=== PATIENT | female | born 1940 | race Caucasian/White ===

== ENCOUNTER 2017-02-26 15:20 | Inpatient (IN) | payer MEDICARE, MEDICAID ==
[~2017-02-26] VITALS: Ht 154.9 cm; Wt 56.2 kg
[2017-02-26] VITALS (13 sets, daily range): BP systolic 98–115; BP diastolic 47–72
[~2017-02-26 15:20] MED LIST: ACET-73 PO; EPOE200011 IJ; FLUO10TA PO; FOLI1TAB16 PO; HALO2TAB7 PO; LAMO1TAB PO; LORA0.5T PO; MAG30ORA PO; MAGN400O4 PO; NITR0.4T SL; SULF1TAB48 PO; [UNRECOGNIZED DRUG - CODE] IM
--- NOTE | 2017-02-26 15:24 | NUR ---
pt bibra from snf to er bed 09. sent by pmd for abnormal labs. low h&h. 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 gowned and placed on monitor. stable vitals. awaiting md crouch.
[2017-02-26] MEDS ORDERED: FAMO20TA8 PO (15:42)
[2017-02-26] MEDS ORDERED: NA P133E RC (15:42)
[2017-02-26] MEDS ORDERED: MIRT15TA PO (15:42)
[2017-02-26] MEDS ORDERED: ATEN25TA PO (15:42)
[2017-02-26] MEDS ORDERED: IPRA0.2S9 IH (15:42)
[2017-02-26] MEDS ORDERED: BISA10SU8 RC (15:42)
[2017-02-26] MEDS ORDERED: ACET-868 PO (15:42)
[2017-02-26] MEDS ORDERED: ALBU2.5V13 IH (15:42)
[2017-02-26] MEDS ORDERED: LAMO25TA5 PO (15:42)
[2017-02-26] MEDS ORDERED: MAGN400O6 PO (15:42)
[2017-02-26] MEDS ORDERED: ONDA-25 PO (15:42)
[2017-02-26] MEDS ORDERED: PANTOPRAZOLE 40 MG VIAL ONE (15:55)
--- NOTE | 2017-02-26 15:56 | NUR ---
dr grant at bedside for eval.
[2017-02-26] MEDS ORDERED: PANTOPRAZOLE 40 MG VIAL IV ONE (16:00)
--- NOTE | 2017-02-26 16:02 | NUR ---
CALLED NURSING SUP. FOR TELE BED
[2017-02-26 16:09] LABS: CALCIUM, SERUM 8.8 mg/dL (8.5-10.1); CARBON DIOXIDE 27 mmol/L (21-32); CHLORIDE 104 mmol/L (98-107); CREATININE 1.2 mg/dL (0.6-1.3); GLUCOSE 114 mg/dL (74-106); POTASSIUM 3.6 mmol/L (3.5-5.1); SODIUM SERUM 137 mmol/L (136-145); UREA NITROGEN, BLOOD 21 mg/dL (7-18)
[2017-02-26 16:12] LABS: BASOPHILS % (AUTO) 0.4 % (0.0-2.0); EOSINOPHILS # (AUTO) 0.1 /CMM (0.0-0.7); EOSINOPHILS % (AUTO) 1.9 % (0.0-6.0); LYMPHOCYTES % (AUTO) 30.4 % (20.0-44.0); MEAN CORPUSCULAR HEMOGLOBIN 32 PG (26.0-33.0); MEAN CORPUSCULAR HGB CONC 35 g/dl (31.0-36.0); MEAN CORPUSCULAR VOLUME 94 fL (82-100); MONOCYTES # (AUTO) 0.2 /CMM (0.1-1.30); MONOCYTES % (AUTO) 5.3 % (2.0-12.0); PLATELET COUNT (AUTO) 293 /CMM (150-450); RDW COEFFICIENT OF VARIATION 18.6 (11.5-15.0); WHITE BLOOD COUNT (AUTO) 3.3 K/uL (4.3-11.0)
[2017-02-26 16:13] LABS: RED BLOOD CELL COUNT(AUTO) 1.92 MIL/uL (4.0-5.2)
[2017-02-26 16:14] LABS: HEMATOCRIT 18 % (33-45); HEMOGLOBIN 6.2 g/dL (11.5-14.8)
--- NOTE | 2017-02-26 16:14 | NUR ---
HEMOGLOBIN 6.2
[2017-02-26 16:15] LABS: INR 1.12 (0.87-1.13); PROTHROMBIN TIME 11.8 SECS (9.5-12.7)
--- NOTE | 2017-02-26 16:40 | NUR ---
report given to francine. pt awaiting transfer to floor.
[2017-02-26 17:05] LABS: EOSINOPHILS % (MANUAL) 2 % (0-4); LYMPHOCYTES % (MANUAL) 31 % (16-48); MONOCYTES % (MANUAL) 2 % (0-11.0); NEUTROPHILS % (MANUAL) 65 (42-76)
--- NOTE | 2017-02-26 17:30 | NUR ---
telephone order clerk room service: admission admitted this 76 yr old female pt from e.r. with dx: anemia. awake, a/ox3; greek speaking with faroese. oriented to room and surroundings. no c/o pain or any discomfort, but request for food. noted with iv to lac, gauge #18. consent for blood already in chart that was done by e.rIlene with order of 1 unit of prbc to transfuse. vss, afebrile. denies n/v, or abdominal pain at this time. placed pt on tele=[id number]. in no apparent distress noted. instructed to call for assistance. will continue to monitor.
[2017-02-26] MEDS ORDERED: NA PHOS,M-B/NA PHOS,DI-BA 1 EA ENEMA RC PRN (18:00)
[2017-02-26] MEDS ORDERED: BISACODYL SUPP (10 MG) 10 MG/SUPP.RECT SUPP.RECT RC PRN (18:00)
[2017-02-26] MEDS ORDERED: IPRATROPIUM NEB FS 0.5 MG/2.5 ML AMPUL.NEB IH PRN (18:00)
[2017-02-26] MEDS ORDERED: ALBUTEROL FS 2.5 MG/0.5 ML VIAL.NEB IH PRN (18:00)
[2017-02-26] MEDS ORDERED: ACETAMINOPHEN 325 MG TABLET PO PRN (18:00)
[2017-02-26] MEDS ORDERED: MAGNESIUM HYDROXIDE 30 ML UDC PO PRN (18:00)
--- NOTE | 2017-02-26 18:00 | NUR ---
radio television technical director: johnny hale) chemical operations specialist for dr. carr notified and made aware re: admission and made aware that only 1 unit of prbc ordered from e.r. with admitting orders: to give additional 1 unit of prbc, cbc in am, continue home medications and diet from snf. orders read back and carried out and acknowledged. Addendum: 02/26/17 at 1809 by KHOA JOHNSON RN also received dnr status ordered.
--- NOTE | 2017-02-26 19:00 | NUR ---
MS RN INITIAL NOTE PT RECEIVED IN BED, A/O X 1, NO S/S OF RESPIRATORY DISTRESS OR SOB. SAFE ENVIRONMENT PROVIDED FREE OF CLUTTERS. IV SITE INTACT WITH NO S/S OF INFILTRATION NOTED.BED IN LOCKED, LOW POSITION. CALL LIGHT WITHIN EASY REACH. WILL CONTINUE TO MONITOR.
--- NOTE | 2017-02-26 20:12 | NUR ---
MS/RN NOTES CALLED SHIREEN ANN, PRINCIPAL PROCESS ENGINEER FOR DR. BLANCHARD AND LEFT MESSAGE WITH CALL BACK NUMBER. CALLED TO CLARIFY HOW MANY UNITS OF PRBC'S PT. NEEDS TO RECEIVE TODAY.
[2017-02-26] MEDS ORDERED: BLOOD IV SET 1 EA INFUS.SET MC ONE ×2 (20:22→23:27)
[2017-02-26] MEDS ORDERED: IV NS 0.9% 250 ML IV ONE ×2 (20:22→23:27)
--- NOTE | 2017-02-26 20:50 | NUR ---
TO START 1 PRBC ORDERED PATIENT EDUCATED ABOUT THE TRANSFUSION.
[2017-02-26] MEDS: MIRTAZAPINE 15 MG TABLET PO SCH (21:10)
--- NOTE | 2017-02-26 22:33 | NUR ---
RECEIVED A MESSAGE FROM MS. ESVIN MARTINEZ NP OF [facility] AT 1930 TO TRANSFUSE ONLY 2 UNITS OF PRBC NOTED AND CARRIED OUT Addendum: 02/27/17 at 0533 by SKYLER SON RN ADDENDUM: NURSE PRACTIONER OF DR. LO BLAS IS EVELYN MARTINEZ
--- NOTE | 2017-02-26 23:08 | NUR ---
POST TRANSFUSION NO A/R NOTED. IN STABLE CONDITION. WILL ADMINISTER 1 MORE PACK RBC ORDERED. WILL CONTINUE TO MONITOR PATIENT
[2017-02-27] VITALS (14 sets, daily range): BP systolic 18–114; BP diastolic 51–95
--- NOTE | 2017-02-27 02:44 | NUR ---
POST TRANSFUSION PATIENT SHOWING NO S/S OF DISTRESS TOLERATED THE PROCEDURE WELL NO A/R NOTED. NO CHANGE IN VITALS, NO SOB, NO HEADACHE NO PULMONARY EDEMA, NO CHILLS, NO HYPOTENSION, NO CHEST PAIN, NO HEMATURIA, NO OOZING BLOOD, NO HIVES AND ITCHING NO TACHYCARDIA, NO FACIAL FACIAL FLUSHING, NO NAUSEA, AND NO SHOCK. NO EVIDENCE OF FLUID OVERLOAD NO SUSPECTED REACTION NOTED.
[2017-02-27 06:37] LABS: BASOPHILS % (AUTO) 0.4 % (0.0-2.0); EOSINOPHILS # (AUTO) 0.1 /CMM (0.0-0.7); HEMATOCRIT 26 % (33-45); HEMOGLOBIN 9.2 g/dL (11.5-14.8); LYMPHOCYTES % (AUTO) 27.5 % (20.0-44.0); MEAN CORPUSCULAR HEMOGLOBIN 31 PG (26.0-33.0); MEAN CORPUSCULAR HGB CONC 35 g/dl (31.0-36.0); MEAN CORPUSCULAR VOLUME 90 fL (82-100); MONOCYTES # (AUTO) 0.2 /CMM (0.1-1.30); MONOCYTES % (AUTO) 4.6 % (2.0-12.0); NEUTROPHILS # (AUTO) 2.5 /CMM (1.8-8.9); NEUTROPHILS % (AUTO) 65.5 % (43.0-81.0); PLATELET COUNT (AUTO) 224 /CMM (150-450); RDW COEFFICIENT OF VARIATION 18.5 (11.5-15.0); RED BLOOD CELL COUNT(AUTO) 2.94 MIL/uL (4.0-5.2); WHITE BLOOD COUNT (AUTO) 3.8 K/uL (4.3-11.0)
--- NOTE | 2017-02-27 06:50 | NUR ---
MS RN CLOSING NOTES PATIENT COMFORTABLY ASLEEP AND EASILY AWAKEN, HEAD OF BED ELEVATED FOR BETTER LUNG EXPANSION A/O X 3, WITH PERIODS OF FORGETFULNESS, PATIENT DENIES PAIN AT THIS TIME. 0/10 RESPIRATIONS EVEN AND UNLABORED. LUNG SOUNDS CLEAR UPON AUSCULTATION, NO S/S OF ACUTE DISTRESS, NO SOB, NO COUGH, NO CONGESTION, SKIN WARM AND DRY TO TOUCH, AFEBRILE, ALL NURSING CARE NEEDS PROVIDED AND RENDERED, NEEDS ATTENDED AND ANTICIPATED, TOLERATING ROOM AIR. VS STABLE. KEPT CLEAN AND DRY AND COMFORTABLE, BLADDER NOT DISTENDED, GOOD SKIN ARE PROVIDED. NO C/O OF CONSTIPATION. ALL DUE MEDS WAS GIVEN TOLERATED. FREQUENT VISUAL CHECK DONE FOR SAFETY EVERY 2 HOURS. SAFE HAZARD FREE ENVIRONMENT PROVIDED. CALL LIGHT WITHIN EASY TO REACH, ON LOW BED AT ALL TIMES TO ENSURE SAFETY, WILL ENDORSE TO THE NEXT SHIFT CONTINUE PLAN OF CARE. WAS ABLE TRANFUSE AND TOLERATED 2 PRBC OF TRANSFUSION WITH NO A/R NOTED. PATIENT REMAINS STABLE AND TOLERATED THE PROCEDURE. NURSE PRACTITIONER OF DR. OL BLAS WANTS TO ONLY TRANFUSE 2 PRBC AND WAS DONE ACCORDINGLY.
--- NOTE | 2017-02-27 07:26 | NUR ---
RN OPEN NOTES RECEIVED REPORT FROM SHOP GIRL NURSE. PATIENT IS IN BED, AWAKE, ALERT AND ORIENTED TO NAME, PLACE AND TIME. NO SIGNS AND SYMPTOMS OF DISTRESS. BED IN LOW POSITION, LOCKED AND 2 SIDE RAILS ARE UP. WILL CONTINUE TO MONITOR AND ASSESS PATIENT CONDITION.
[2017-02-27] MEDS: ATENOLOL 25 MG TABLET PO SCH ×2 (08:05→16:42)
[2017-02-27] MEDS: LamoTRIgine 25 MG TABLET PO SCH (08:05)
[2017-02-27] MEDS ORDERED: FAMOTIDINE (20 MG) 20 MG TABLET PO SCH (09:00)
--- NOTE | 2017-02-27 18:38 | NUR ---
RN CLOSING NOTES Patient is alert and oriented to name, time and place. Patient kept clean and dry. All needs anticipated. Stool sample for occult blood is needed, patient made aware. Patient is in bed. bed in low position, locked and two side-rails are up. No signs and symptoms of distress. Denied pain. Will endorse to night court magistrate nurse to continue of care.
--- NOTE | 2017-02-27 19:00 | NUR ---
MS RN INITIAL NOTE PT RECEIVED IN BED, A/O X 3, NO S/S OF RESPIRATORY DISTRESS OR SOB. SAFE ENVIRONMENT PROVIDED FREE OF CLUTTERS. IV SITE INTACT WITH NO S/S OF INFILTRATION NOTED.BED IN LOCKED, LOW POSITION. CALL LIGHT WITHIN EASY REACH. WILL CONTINUE TO MONITOR.
[2017-02-27] MEDS: MIRTAZAPINE 15 MG TABLET PO SCH (21:12)
--- NOTE | 2017-02-27 21:22 | NUR ---
REMERON 15 MG PO DUE AT 2200 REFUSED TO TAKE BY THE PATIENT RISKS AND BENEFITS EXPLAINED OFFERED 3 TIMES STILL REFUSED. MADE AWARE, RP MADE AWARE
--- NOTE | 2017-02-28 06:27 | NUR ---
MS RN CLOSING NOTES PATIENT COMFORTABLY ASLEEP AND EASILY AWAKEN, A/O X 3 WITH PERIODS OF FORGETFULNESS. HEAD OF BED ELEVATED FOR BETTER LUNG EXPANSION TOLERATING ROOM AIR 02 SAT 97% R.A NABEEL IV PATENT AND FLUSHED. NO S/S OF INFILTRATED, PATIENT DENIES PAIN AT THIS TIME. RESPIRATIONS EVEN AND UNLABORED. NO S/S OF ACUTE DISTRESS, NO SOB, NO COUGH, NO CONGESTION, SKIN WARM AND DRY TO TOUCH, AFEBRILE, ALL NURSING CARE NEEDS PROVIDED AND RENDERED, NEEDS ATTENDED AND ANTICIPATED, KEPT CLEAN AND DRY AND COMFORTABLE, GOOD SKIN CARE PROVIDED. FREQUENT VISUAL CHECK DONE FOR SAFETY EVERY 2 HOURS. VS STABLE. SAFE HAZARD FREE ENVIRONMENT PROVIDED. CALL LIGHT WITHIN EASY TO REACH, ON LOW BED AT ALL TIMES TO ENSURE SAFETY, WILL ENDORSE TO THE NEXT SHIFT CONTINUE PLAN OF CARE.
[2017-02-28 06:44] LABS: BASOPHILS % (AUTO) 0.3 % (0.0-2.0); HEMATOCRIT 27 % (33-45); HEMOGLOBIN 9.4 g/dL (11.5-14.8); LYMPHOCYTES % (AUTO) 22.4 % (20.0-44.0); MEAN CORPUSCULAR HEMOGLOBIN 31 PG (26.0-33.0); MEAN CORPUSCULAR HGB CONC 35 g/dl (31.0-36.0); MEAN CORPUSCULAR VOLUME 90 fL (82-100); MONOCYTES % (AUTO) 4.3 % (2.0-12.0); PLATELET COUNT (AUTO) 230 /CMM (150-450); RDW COEFFICIENT OF VARIATION 19.3 (11.5-15.0); RED BLOOD CELL COUNT(AUTO) 3.01 MIL/uL (4.0-5.2); WHITE BLOOD COUNT (AUTO) 4.3 K/uL (4.3-11.0)
[2017-02-28 06:45] LABS: EOSINOPHILS # (AUTO) 0.1 /CMM (0.0-0.7); MONOCYTES # (AUTO) 0.2 /CMM (0.1-1.30); NEUTROPHILS # (AUTO) 3.1 /CMM (1.8-8.9)
--- NOTE | 2017-02-28 07:10 | NUR ---
MS RN NOTES REPORT RECEIVED AT THE BEDSIDE. PATIENT IS SLEEPING. NO SOB OR DISTRESS NOTED AT THIS TIME. PATIENT DENIES PAIN AT THIS TIME. BED IN A LOW POSITION, CALL LIGHT WITHIN PATIENT REACH. WILL CONTINUE TO MONITOR.
[2017-02-28 08:00] VITALS: BP 107/57
[2017-02-28] MEDS: ATENOLOL 25 MG TABLET PO SCH ×2 (08:10→16:15)
[2017-02-28] MEDS: LamoTRIgine 25 MG TABLET PO SCH (08:11)
[2017-02-28] MEDS: PANTOPRAZOLE 40 MG TABLET.DR PO SCH (08:11)
[2017-02-28 16:00] VITALS: BP 104/57
--- NOTE | 2017-02-28 18:43 | NUR ---
MS RN CLOSING NOTES NO SIGNIFICANT CHANGES IN PATIENT CONDITION THROUGHOUT THE SHIFT. NO SOB OR DISTRESS NOTED AT THIS TIME. PATIENT DENIES PAIN. BED IN A LOW POSITION, CALL LIGHT WITHIN PATIENT REACH. WILL ENDORSE FOR ADRIANE.
[2017-02-28 20:00] VITALS: BP 101/50
[2017-02-28] MEDS: MIRTAZAPINE 15 MG TABLET PO SCH (21:55)
--- NOTE | 2017-03-01 06:11 | NUR ---
MS RN NOTES AWAKE & RESPONSIVE. NOT IN ANY DISTRESS. NO SOB NOTED. DENIES ANY PAIN OR DISCOMFORT AT THIS TIME. WITH IV-HL PATENT & INTACT. AM CARE DONE. MONITORED ACCORDINGLY. CALL LIGHT WITHIN REACH. BED IN LOWEST POSITION. SR UP X 3 FOR SAFETY WITH BED ALARM ON. WILL ENDORSE TO NEXT SHIFT.
--- NOTE | 2017-03-01 07:22 | NUR ---
AM RN NOTE Received patient awake, A/O X3 verbally responsive. No acute distress noted. Resp even and no-labored. Bed in low locked position. Will continue to monitor.
[2017-03-01 08:00] VITALS: BP 117/55
[2017-03-01] MEDS: LamoTRIgine 25 MG TABLET PO SCH (08:13)
[2017-03-01] MEDS: PANTOPRAZOLE 40 MG TABLET.DR PO SCH (08:13)
[2017-03-01 08:14] VITALS: BP 117/55
[2017-03-01] MEDS: ATENOLOL 25 MG TABLET PO SCH (08:14)
--- NOTE | 2017-03-01 12:30 | NUR ---
AM RN NOTE Received call from Lab to collect MRSA nares sample, sample collected and placed in fridge.
--- NOTE | 2017-03-01 14:45 | NUR ---
AM RN NOTE Discharge order given by Dr. Robbie dozier to [facility]. Called [facility] and spoke with Lili TIRADO report given on patient.
--- NOTE | 2017-03-01 15:43 | NUR ---
AM RN NOTE Patient awake, denies any pain or discomfort at this time. Report given to EMT's and V/S taken by them, stable. HL & ID band removed. Pt discharged/ left unit at this time via gurney as accompanied by 2 EMT's (pt with no belongings).
== END 2017-03-01 15:45 | DRG 811 ==
LOC: ER 15:26 → TELE 17:32 → MED 02-27 08:18
PROVIDERS: ADMIT Internal Medicine; ATTEND Internal Medicine
PROC: 30233N1 Transfusion of Nonautologous Red Blood Cells into Peripheral Vein, Percutaneous Approach (ICD-10-PCS; principal; 2017-02-26)
DX: D64.9 Anemia, unspecified (principal); G93.40 Encephalopathy, unspecified; C90.00 Multiple myeloma not having achieved remission; E46 Unspecified protein-calorie malnutrition; I12.9 Hypertensive chronic kidney disease with stage 1 through stage 4 chronic kidney disease, or unspecified chronic kidney disease; N18.9 Chronic kidney disease, unspecified; K21.9 Gastro-esophageal reflux disease without esophagitis; K58.9 Irritable bowel syndrome, unspecified; F03.90 Unspecified dementia, unspecified severity, without behavioral disturbance, psychotic disturbance, mood disturbance, and anxiety; Z68.23 Body mass index [BMI] 23.0-23.9, adult; R00.0 Tachycardia, unspecified; R53.1 Weakness
CPT/HCPCS: 36415; 80048-TC; 85025-TC; 85730-TC; 86850-TC; 86921-TC; 87081-TC; 97001-TC; A4606; C9113; J7050; P9016-BL; Z7610

== ENCOUNTER 2017-04-16 00:17 | Inpatient (IN) | payer MEDICARE, MEDICAID ==
[~2017-04-16] VITALS: Ht 162.6 cm; Wt 46.3 kg
[2017-04-16] VITALS (14 sets, daily range): BP systolic 83–125; BP diastolic 34–62
[~2017-04-16 00:17] MED LIST changes: -ACET-73 PO; +ACET-868 PO; +ALBU2.5V13 IH; +ATEN25TA PO; +BISA10SU8 RC; -EPOE200011 IJ; +FAMO20TA8 PO; -FLUO10TA PO; -FOLI1TAB16 PO; -HALO2TAB7 PO; +IPRA0.2S9 IH; -LAMO1TAB PO; +LAMO25TA5 PO; -LORA0.5T PO; -MAG30ORA PO; -MAGN400O4 PO; +MAGN400O6 PO; +MIRT15TA PO; +NA P133E RC; -NITR0.4T SL; +ONDA-25 PO; -SULF1TAB48 PO; -[UNRECOGNIZED DRUG - CODE] IM
--- NOTE | 2017-04-16 00:20 | NUR ---
to bed 4 [facility] paramedics c/o L eyebrow laceration, occipital scalp laceration s/p glf witnessed by [facility] staff member. pt confused, no acute distress noted, resp even and unlabored. pt restless, uncooperative at this time. place pt on cardiac monitoring, continuous pox. er md at bedside to eval pt with orders received. will carry out orders.
--- NOTE | 2017-04-16 00:23 | NUR ---
called [facility] at [phone], spoke with Gabriel. Per gabriel it was an unwitnessed fall [id number] [facility] [place] [address] Addendum: 04/16/17 at 0054 by HERBERT [facility]
[2017-04-16] MEDS ORDERED: ACETAMINOPHEN 650 MG/SUPP.RECT RC ONE ×2 (00:48→01:00)
--- NOTE | 2017-04-16 00:55 | NUR ---
female rn at bedside for I&O cath for urine sample.
[2017-04-16 00:56] LABS: EOSINOPHILS % (AUTO) 0.1 % (0.0-6.0); LYMPHOCYTES # (AUTO) 0.5 /CMM (0.8-4.8); MONOCYTES # (AUTO) 0.1 /CMM (0.1-1.30)
[2017-04-16 00:58] LABS: MEAN CORPUSCULAR HEMOGLOBIN 35 PG (26.0-33.0); MEAN CORPUSCULAR HGB CONC 35 g/dl (31.0-36.0); MEAN CORPUSCULAR VOLUME 101 fL (82-100); MONOCYTES % (AUTO) 3.8 % (2.0-12.0); NEUTROPHILS # (AUTO) 1.2 /CMM (1.8-8.9); NEUTROPHILS % (AUTO) 70.1 % (43.0-81.0); PLATELET COUNT (AUTO) 106 /CMM (150-450); RDW COEFFICIENT OF VARIATION 20.2 (11.5-15.0)
[2017-04-16 00:59] LABS: RED BLOOD CELL COUNT(AUTO) 1.57 MIL/uL (4.0-5.2)
--- NOTE | 2017-04-16 00:59 | NUR ---
pt transported to radiology for ct head.
[2017-04-16 01:00] LABS: HEMATOCRIT 16 % (33-45); HEMOGLOBIN 5.5 g/dL (11.5-14.8)
[2017-04-16] MEDS ORDERED: IV NS 0.9% 1,000 ML BAG IV ONE (01:00)
[2017-04-16 01:01] LABS: WHITE BLOOD COUNT (AUTO) 1.8 K/uL (4.3-11.0)
[2017-04-16 01:11] LABS: TROPONIN I 0.031 ng/mL (0.00-0.056)
[2017-04-16 01:14] LABS: INR 1.45 (0.87-1.13); PROTHROMBIN TIME 15.9 SECS (9.5-12.7)
--- NOTE | 2017-04-16 01:14 | NUR ---
pt back from radiology. pending ct results.
[2017-04-16 01:20] LABS: ALANINE AMINOTRANSFERASE 13 U/L (12-78); ALBUMIN 1.9 g/dL (3.4-5.0); ALKALINE PHOSPHATASE 49 U/L (46-116); ASPARTATE AMINOTRANSFERASE 16 U/L (15-37); BILIRUBIN,DIRECT 0.1 mg/dL (0.0-0.2); BILIRUBIN,TOTAL 0.3 mg/dL (0.2-1.0); CALCIUM, SERUM 10.1 mg/dL (8.5-10.1); CARBON DIOXIDE 21 mmol/L (21-32); CHLORIDE 100 mmol/L (98-107); CREATININE 1.3 mg/dL (0.6-1.3); GLUCOSE 155 mg/dL (74-106); POTASSIUM 3.7 mmol/L (3.5-5.1); SODIUM SERUM 132 mmol/L (136-145); TOTAL PROTEIN, SERUM 12.7 g/dL (6.4-8.2)
[2017-04-16 01:21] LABS: APPEARANCE,URINE SL CLOUDY (CLEAR); BILIRUBIN,URINE NEGATIVE (NEGATIVE); BLOOD, URINE 2+ Ery/uL (NEGATIVE); COLOR,URINE YELLOW (YELLOW); KETONES,URINE NEGATIVE (NEGATIVE); LEUKOCYTE ESTERASE ,URINE 3+ (NEGATIVE); NITRITE, URINE NEGATIVE (NEGATIVE); PH,URINE 5.5 (5.0-8.0); PROTEIN,URINE 1+ mg/dl (NEGATIVE); UGLUCOSE NEGATIVE (NEGATIVE); UROBILINOGEN,URINE 0.2 EU/dL (0.2)
[2017-04-16 01:28] LABS: BACTERIA,URINE Rare /HPF (None Seen); URINE AMORPHOUS URATE Rare /HPF (None Seen)
[2017-04-16 01:30] LABS: SQUAMOUS EPITHELIAL CELL,UR Moderate /HPF (None Seen)
[2017-04-16 01:32] LABS: LYMPHOCYTES % (MANUAL) 30 % (16-48); MONOCYTES % (MANUAL) 3 % (0-11.0); NEUTROPHILS % (MANUAL) 67 (42-76)
[2017-04-16 01:35] LABS: UREA NITROGEN, BLOOD 26 mg/dL (7-18)
[2017-04-16] MEDS ORDERED: PANT40TA2 PO (01:40)
--- NOTE | 2017-04-16 02:02 | NUR ---
bela elizondo talking to dr. bruno aguero pt admission.
[2017-04-16] MEDS ORDERED: PIPERACILLIN /TAZOBACTAM 3.375 G VIAL IV ONE (02:14)
[2017-04-16] MEDS ORDERED: IV NS 0.9% 500 ML BAG IV ONE (02:30)
[2017-04-16] MEDS ORDERED: PIPERACILLIN /TAZOBACTAM 3.375 G in IV D5W 50 ML IV ONE (02:30)
--- NOTE | 2017-04-16 02:35 | NUR ---
report called to felicita Soares. will transport pt via acls protocol.
[2017-04-16] MEDS ORDERED: CEFTRIAXONE 1 G in IV D5W 50 ML IV SCH (03:00)
[2017-04-16] MEDS ORDERED: FUROSEMIDE 20 MG/2 ML VIAL IV ONE (03:00)
[2017-04-16] MEDS ORDERED: TRAMADOL HCL 50 MG TABLET PO PRN (03:00)
--- NOTE | 2017-04-16 03:00 | NUR ---
RN INITIAL NOTES PATIENT ARRIVED VIA GURNEY FROM ER. PATIENT A/A/O X3 W/ SOME CONFUSION. UNCOOPERATIVE W/ VITAL SIGNS BEING TAKEN. NO RESPIRATORY DISTRESS NOTED, BREATHING EVEN AND UNLABORED, ON ROOM AIR. ON TELE SINUS RHYTHM IN THE 90S. RIGHT AC AND RIGHT FOREARM IV SITE CDI, CONTINUING BOLUS FROM ER. LEFT ARM IN SLING FOR FRACTURE. DENIES ANY PAIN. PHOTOS PLACED IN CHART FROM SKIN ASSESSMENT. SIDE RAILS UP, BED LOCKED AND IN LOWEST POSITION, CALL LIGHT WITHIN REACH. WILL CONTINUE TO MONITOR.
--- NOTE | 2017-04-16 03:40 | NUR ---
RN NOTES CALLED DR BLANCHARD TO REPORT CRITICAL LACTIC ACID LEVEL. NO NEW ORDERS GIVEN.
--- NOTE | 2017-04-16 04:00 | NUR ---
RN NOTES BLOOD TRANSFUSION STARTED. NO INITIAL REACTIONS
[2017-04-16] MEDS ORDERED: IV PREMIX NS +20MEQ KCL 1 L IV ONE (04:03)
[2017-04-16] MEDS: Potassium Chloride 20 MEQ in IV NS 0.9% 1,000 ML IV PRN (05:16)
[2017-04-16] MEDS ORDERED: CEFTRIAXONE 1 G VIAL ONE (05:24)
--- NOTE | 2017-04-16 07:15 | NUR ---
RN INITIAL NOTE PATIENT RECEIVED IN BED. PATIENT ASLEEP, EASILY AROUSED. ABLE TO MAKE NEEDS KNOWN. RESPIRATIONS ARE EVEN AND UNLABORED. SATING WELL ON ROOM AIR. NO S/S OF RESPIRATORY DISTRESS OR SOB. PATIENT IS SINUS TACH ON TELE MONITOR. HEART RATE 93. IV SITE FLUSHED, PATENT. SKIN IS WARM AND DRY TO TOUCH. SAFETY PRECAUTIONS IMPLEMENTED. BED IN LOCKED, LOW POSITION WITH TWO SIDE RAILS UP. CALL LIGHT AND BELONGINGS WITHIN REACH. WILL CONTINUE TO MONITOR CLOSELY.
--- NOTE | 2017-04-16 07:30 | NUR ---
RN NOTE PATIENT REFUSING VITAL SIGNS. DID LABS WITH COAXING.
[2017-04-16] MEDS ORDERED: FERR-58 PO (07:35)
[2017-04-16] MEDS ORDERED: IPRA0.2S9 IH (07:35)
[2017-04-16] MEDS ORDERED: NA P133E RC (07:35)
[2017-04-16] MEDS ORDERED: BISA10SU8 RC (07:35)
[2017-04-16 09:19] LABS: LYMPHOCYTES # (AUTO) 0.1 /CMM (0.8-4.8); LYMPHOCYTES % (AUTO) 5.8 % (20.0-44.0); MEAN CORPUSCULAR HEMOGLOBIN 33 PG (26.0-33.0); MEAN CORPUSCULAR HGB CONC 35 g/dl (31.0-36.0); MEAN CORPUSCULAR VOLUME 94 fL (82-100); MONOCYTES # (AUTO) 0.1 /CMM (0.1-1.30); MONOCYTES % (AUTO) 3.1 % (2.0-12.0); NEUTROPHILS # (AUTO) 2.3 /CMM (1.8-8.9); NEUTROPHILS % (AUTO) 91.1 % (43.0-81.0); PLATELET COUNT (AUTO) 82 /CMM (150-450); RDW COEFFICIENT OF VARIATION 21.3 (11.5-15.0); WHITE BLOOD COUNT (AUTO) 2.5 K/uL (4.3-11.0)
[2017-04-16 09:28] LABS: RED BLOOD CELL COUNT(AUTO) 1.85 MIL/uL (4.0-5.2)
[2017-04-16 09:30] LABS: HEMATOCRIT 17 % (33-45); HEMOGLOBIN 6.1 g/dL (11.5-14.8)
[2017-04-16 09:35] LABS: B-TYPE NATRIURETIC PEPTIDE 12086 PG/ML (0-125); CALCIUM, SERUM 9.3 mg/dL (8.5-10.1); CARBON DIOXIDE 21 mmol/L (21-32); CHLORIDE 104 mmol/L (98-107); CREATININE 1.3 mg/dL (0.6-1.3); GLUCOSE 173 mg/dL (74-106); POTASSIUM 3.3 mmol/L (3.5-5.1); SODIUM SERUM 134 mmol/L (136-145); UREA NITROGEN, BLOOD 30 mg/dL (7-18)
--- NOTE | 2017-04-16 09:35 | NUR ---
RN NOTE LAB CALLED WITH HGB 6.1/ HCT 17. MADE AWARE
[2017-04-16 09:46] LABS: BAND % (MANUAL) 33 % (0.0-5.0); LYMPHOCYTES % (MANUAL) 6 % (16-48); MONOCYTES % (MANUAL) 7 % (0-11.0); NEUTROPHILS % (MANUAL) 54 (42-76)
[2017-04-16] MEDS ORDERED: MAGNESIUM HYDROXIDE 30 ML UDC PO PRN (10:00)
[2017-04-16] MEDS ORDERED: ALBUTEROL FS 2.5 MG/0.5 ML VIAL.NEB NEB PRN (10:00)
[2017-04-16] MEDS ORDERED: ACETAMINOPHEN 325 MG TABLET PO PRN (10:00)
[2017-04-16] MEDS: LamoTRIgine 25 MG TABLET PO SCH (11:09)
[2017-04-16] MEDS: Magnesium 1GM/D5W 100ML PREMIX 100 ML IV SCH ×3 (11:09→14:23)
[2017-04-16] MEDS: PANTOPRAZOLE 40 MG TABLET.DR PO SCH (11:09)
[2017-04-16] MEDS: METOPROLOL SUCCINATE 25 MG TAB.SR.24H PO SCH ×2 (11:15→11:23)
--- NOTE | 2017-04-16 15:00 | NUR ---
RN NOTE PATIENT EVALUATED BY ORTHOPEDIC SURGERY. REQUESTING MEDICAL CLEARANCE FOR ORIF. PER DR BLANCHARD PATIENT IS NOT CLEARED.
[2017-04-16] MEDS ORDERED: FEE PK DOSING 1 MIN EA MC ONE (15:54)
--- NOTE | 2017-04-16 16:30 | NUR ---
RN NOTE INFUSING ONE UNIT PRBC PER MD ORDER. PATIENT TOLERATING TRANSFUSION WELL. VITAL SIGNS WNL.
[2017-04-16] MEDS ORDERED: VANCOMYCIN 0.75 GM in IV D5W 250 ML IV SCH (17:00)
[2017-04-16] MEDS ORDERED: ATENOLOL 25 MG TABLET PO SCH (17:00)
[2017-04-16] MEDS: PIPERACILLIN /TAZOBACTAM 3.375 G in IV D5W 50 ML IV SCH (18:38)
--- NOTE | 2017-04-16 20:11 | NUR ---
RN NOTES PATIENT IN BED, AWAKE, ALERT AND ORIENTED. NO RESPIRATORY DISTRESS, BREATHING EVEN AND UNLABORED. NOTED RAC LINE WITH LEAKAGE, RFA PIV LINE INFILTRATED. TRIED TO CLEAN THE SITE BUT PATIENT REFUSED AND SAID "LEAVE ME ALONE". EXPLAINED THE RISK AND BENEFITS, PATIENT SHOUTED TO JUST LEAVE HER ALONE BUT AGREED TO TAKE HER VITAL SIGNS AND ALLOWED THE NURSE TO CLEAN THE IV SITE AND REMOVED TH RAC PIV LINE. AFTER 30 MINUTES, NURSE CAME TO INSERT MIDLINE PIV LINE. PATIENT PROFUSELY REFUSED AND SAID "YOU CANNOT DO ANYTHING TO ME UNLESS I AGREE". EXPLAINED THE NECESSITY OF PUTTING A LINE FOR ACCESS IN GIVING ANTIBIOTIC AND OTHER MEDICATION NEEDED. PATIENT CONSISTENTLY REFUSED AND SAID "LEAVE ME ALONE". CHARGE NURSE, HUMAN RESOURCES GENERALIST AND THE NURSE WHO IS GOING TO INSERT THE LINE SPOKE TO THE PATIENT POINTING OUT THE IMPORTANCE OF IV LINE. STILL PATIENT REFUSED AND INSISTED TO LEAVE HER ALONE.
[2017-04-16] MEDS: MIRTAZAPINE 15 MG TABLET PO SCH (21:43)
[2017-04-17] VITALS: BP 111/66
--- NOTE | 2017-04-17 | NUR ---
RN NOTES PATIENT STILL REFUSES TO HAVE IV LINE INSERTED. UNABLE TO ADMINISTER ZOSYN IV AT 0000. EXPLAINED BENEFITS AND IMPORTANCE OF MED.
[2017-04-17 04:00] VITALS: BP 124/65
[2017-04-17] MEDS: PIPERACILLIN /TAZOBACTAM 3.375 G in IV D5W 50 ML IV SCH (06:40)
--- NOTE | 2017-04-17 07:10 | NUR ---
TELE INITIAL RN NOTE: RECEIVED PATIENT AWAKE IN BED. PATIENT IS A&OX2, DENIES PAIN, SOB, RESPIRATIONS EVEN AND UNLABORED. REFUSED TELEMONITOR. RIGHT HAND SL INTACT AND PATENT. EXPLAINED CARE PLAN TO PATIENT. PER PATIENT, DOES NOT WANT TO BE BOTHERED UNTIL AFTER SHE EATS BREAKFAST. BED LOW, LOCKED WITH CALL LIGHT WITHIN REACH. WILL CONT TO MONITOR.
--- NOTE | 2017-04-17 07:10 | NUR ---
LAB SUPPORT TECHNICIAN NOTE: PATIENT REFUSED TELE MONITOR. EDUCATED PATIENT ON PLACEMENT, BUT PATIENT STILL REFUSED. WILL CONT TO MONITOR.
--- NOTE | 2017-04-17 07:15 | NUR ---
PARTICLE BOARD SUPERVISOR NOTE: PATIENT REFUSED BEDSIDE XR. EXPLAINED RISKS AND BENEFITS, BUT PATIENT STILL REFUSED. WILL CONT TO MONITOR.
--- NOTE | 2017-04-17 07:32 | NUR ---
RN CLOSING NOTES FINALLY CONVINCED PATIENT TO AGREE TO PLACE IV LINE. INSERTED PIV LINE TO RIGHT HAND. PROCEDURE WELL TOLERATED, NO COMPLAINT OF PAIN. RESTARTED IV NS AND IV ZOSYN. NO ADVERSE EFFECT NOTED. ALERT AND ORIENTED. NO DISTRESS NOTED. WILL ENDORSE TO AM SHIFT FOR CONTINUITY OF CARE.
--- NOTE | 2017-04-17 07:57 | NUR ---
RN CLOSING NOTES NO COMPLAINT OF PAIN. REMAINS AFEBRILE. VITAL SIGNS WNL. WILL ENDORSE TO AM SHIFT FOR CONTINUITY OF CARE.
[2017-04-17 08:00] VITALS: BP 128/71
[2017-04-17] MEDS: LamoTRIgine 25 MG TABLET PO SCH (08:53)
[2017-04-17] MEDS: PANTOPRAZOLE 40 MG TABLET.DR PO SCH (08:53)
--- NOTE | 2017-04-17 08:55 | NUR ---
TELE TN NOTE: PATIENT REFUSED SKIN AND LUNG ASSESSMENT. EDUCATED PATIENT ON ASSESSMENT, BUT PATIENT STILL REFUSED. PER PATIENT, "I'M OK, IT'S NOTHING." CALL LIGHT WITHIN REACH. WILL CONTINUE TO MONITOR.
--- NOTE | 2017-04-17 10:30 | NUR ---
VOLUNTEER PATIENT REPRESENTATIVE NOTE: RECEIVED CALL FROM CHOT AT LAB NOTIFYING OF PATIENT POSITIVE FOR MRSA BLOOD. ISOLATION PRECAUTIONS IN PLACE. CHARGE NURSE AND DR. BLANCHARD MADE AWARE.
[2017-04-17] MEDS: Magnesium 1GM/D5W 100ML PREMIX 100 ML IV SCH ×3 (11:19→12:30)
--- NOTE | 2017-04-17 11:50 | NUR ---
FARM TRACTOR OPERATOR NOTE: PER NURSING REPORT, PATIENT REFUSED VANCOMYCIN IV ON 04/16/17 1700. SPOKE TO PHARMACY AND WILL ORDER NEW DOSE AND SCHEDULE FOR 1300. WILL CONT TO MONITOR.
[2017-04-17 11:52] LABS: CARBON DIOXIDE 21 mmol/L (21-32); CHLORIDE 103 mmol/L (98-107); GLUCOSE 123 mg/dL (74-106); POTASSIUM 3.2 mmol/L (3.5-5.1); SODIUM SERUM 133 mmol/L (136-145); UREA NITROGEN, BLOOD 22 mg/dL (7-18)
[2017-04-17 12:00] VITALS: BP 130/63
[2017-04-17] MEDS ORDERED: PIPERACILLIN /TAZOBACTAM 2.25 G in IV D5W 50 ML IV SCH (12:00)
--- NOTE | 2017-04-17 12:30 | NUR ---
PLATE FILLER NOTE: MAGNESIUM IV DOSE NOT GIVEN AT 1230 DUE TO PATIENT REFUSAL. ADJUSTED 3RD DOSE MAGNESIUM IV AT 1630. WILL CONT TO MONITOR.
--- NOTE | 2017-04-17 13:25 | NUR ---
BRAKE REPAIRER RAILROAD NOTE: DR. BLANCHARD SEEN PATIENT AT BEDSIDE. MIDLINE ORDERED. WILL CONT TO MONITOR.
--- NOTE | 2017-04-17 13:30 | NUR ---
PRODUCTION LEADER NOTE: CALLED PHARMACY AND WAS TOLD THAT IV ANTIBIOTICS ARE STILL BEING DELIVERED. WILL CONT TO MONITOR.
--- NOTE | 2017-04-17 15:00 | NUR ---
NET DEVELOPER CONSULTANT NOTE: RECEIVED CALL FROM MARISOL AT [facility] WITH REPORT OF PATIENT POSITIVE FOR MRSA NARES. ISOLATION PRECAUTIONS IN PLACE. WILL CONT TO MONITOR.
--- NOTE | 2017-04-17 15:30 | NUR ---
MS RN NOTE: RN JOB AT BEDSIDE FOR MIDLINE INSERTION.
[2017-04-17 16:00] VITALS: BP 130/63
[2017-04-17] MEDS: VANCOMYCIN 0.75 GM in IV D5W 250 ML IV SCH ×2 (16:16→16:45)
[2017-04-17] MEDS ORDERED: Magnesium 1GM/D5W 100ML PREMIX 100 ML IV SCH (16:30)
[2017-04-17] MEDS: Potassium Chloride 20 MEQ in IV NS 0.9% 1,000 ML IV PRN (17:37)
--- NOTE | 2017-04-17 19:30 | NUR ---
GLASS FURNACE TENDER NOTE: PATIENT A&OX2. DENIES PAIN, SOB. DIANNA MIDLINE 20G AND RIGHT HAND SL INTACT AND PATENT WITH NO S/S OF INFECTION. ISOLATION PRECAUTIONS REMAINED IN PLACE. ALL NEEDS MET AND ANTICIPATED. WILL ENDORSE TO APPRAISER OIL AND WATER NURSE FOR ADRIANE. Addendum: 04/17/17 at 1942 by FLORENCIA DREW RN TELE CLOSING RN NOTE
--- NOTE | 2017-04-17 19:35 | NUR ---
RN NOTE RECEIVED REPORT. PT RESTING COMFORTALBY IN BED WITH EYES CLOSED. NO S/S OF ANY DISTRESS AT THIS TIME. IV INTACT AND PATENT, TOLERATING FLUIDS WELL. REFUSING TELE BOX DESPITE TEAXHING X3. CALL LIGHT I NREACH, WILL CONT TO MARISELIOR.
[2017-04-17 20:00] VITALS: BP 154/73
[2017-04-17] MEDS: MIRTAZAPINE 15 MG TABLET PO SCH (21:45)
[2017-04-18 04:00] VITALS: BP 151/72
--- NOTE | 2017-04-18 06:35 | NUR ---
RN NOTE SPOKE WITH PT DTR CAITLIN ABOUT PROCEDURE CONSENT. PER CAITLIN, HER MOTHER CAN MAKE DECISIONS ON HER OWN. CAITLIN DOES NOT WANT TO MAKE A DECISION FOR HER.
--- NOTE | 2017-04-18 06:40 | NUR ---
RN NOTE NO SIGNIFICANT CHANGES OVERNIGHT. NO C/O OR S/S OF ANY PAIN OR DISCOMFORT. IV INTACT AND PATENT. VSS. PT SHAKES HER HEAD NO WHEN ASKED ABOUT HAVING SURGERY. WILL F.U WITH DAY SHIFT FOR ADRIANE. CALL LIGHT IN REACH.
[2017-04-18] MEDS: VANCOMYCIN 0.75 GM in IV D5W 250 ML IV SCH (06:59)
[2017-04-18 08:00] VITALS: BP 145/66
--- NOTE | 2017-04-18 08:00 | NUR ---
MS RN NOTE RESTING COMFORTABLY IN BED , ALL NEEDS ATTENDED, NO SOB NOTED, ON RA , RT UA MIDLINE IN PLACE, NO S\S INFECTION NOTED , PATIENT, ALERT ORIENTED WITH UNCOOPERATIVE AT TIMES ON IVF ORDERED , BED IN LOWEST AND LOCKED POSITION , CALL LIGHT WITHIN REACH , PLAN OF CARE DISCUSSED WITH PATIENT , WILL CONT TO MONITOR CLOSELY,
[2017-04-18] MEDS: PANTOPRAZOLE 40 MG TABLET.DR PO SCH (08:22)
[2017-04-18] MEDS: LamoTRIgine 25 MG TABLET PO SCH (08:23)
[2017-04-18] MEDS: METOPROLOL SUCCINATE 25 MG TAB.SR.24H PO SCH (09:26)
[2017-04-18] MEDS: Magnesium 1GM/D5W 100ML PREMIX 100 ML IV SCH ×4 (10:30→14:06)
--- NOTE | 2017-04-18 11:01 | NUR ---
MS RN NOTE STILL REFUSING TO JESUS V BLOOD, WILL ENCOURAGE TO DO TO CHECK MAG LEVEL
[2017-04-18] MEDS: Potassium Chloride 20 MEQ in IV NS 0.9% 1,000 ML IV PRN (12:06)
--- NOTE | 2017-04-18 12:10 | NUR ---
MS RN NOTE SPOKE WITH DR BLANCHARD NOTIFIED THAT ON ON MAG 28 REFUSED TO DRW LAB TODAY. STATED ITS OK TO ADMINISTER TODAY , ORDER CARRIED OUT
--- NOTE | 2017-04-18 15:00 | NUR ---
MS RN NOTE NOTIFIED TO DR BLANCHARD THAT PATENT HAS CHEST CONGESTION WITH COUGHING , OFFERED BREATHING TX AND INTENSIVE SPIROMETER, STILL REFUSE ,ALSO REFUSED BLOOD CX TO JESUS AND ECHO REFUSED TO DO ,ORDERED TO STOP IVF, ORDER CARRIED OUT
[2017-04-18 16:00] VITALS: BP 113/65
[2017-04-18 17:14] LABS: CARBON DIOXIDE 22 mmol/L (21-32); CHLORIDE 105 mmol/L (98-107); CREATININE 0.8 mg/dL (0.6-1.3); GLUCOSE 96 mg/dL (74-106); POTASSIUM 3.9 mmol/L (3.5-5.1); SODIUM SERUM 134 mmol/L (136-145); UREA NITROGEN, BLOOD 13 mg/dL (7-18)
[2017-04-18 17:39] LABS: MAGNESIUM 2.3 mg/dL (1.8-2.4)
--- NOTE | 2017-04-18 18:17 | NUR ---
MS RN NOTE ASSISTED TO BR, KEEP CLEAN DRY , NOT IN ACUTE DISTRESS ,WILL CONT TO MONITOR CLOSELY BLOOD CX DRAWN BY FRUIT GRADER , HAVING DINNER , ABLE NIKKY EAT SELF , CALL LIGHT WITHIN REACH , WILL CONT TO MONITOR CLOSELY
--- NOTE | 2017-04-18 19:28 | NUR ---
RN NOTES: IN BED, SLEEPING WITH NO RESPIRATORY DISTRESS OR SHORTNESS OF BREATH. ON ROOM AIR, BREATHING EVEN AND UNLABORED. NO PHYSICAL MANIFESTATION OF PAIN OR DISCOMFORT. WILL CONTINUE TO MONITOR
[2017-04-18 20:00] VITALS: BP 125/75
[2017-04-18] MEDS: MIRTAZAPINE 15 MG TABLET PO SCH (21:35)
[2017-04-18] MEDS: MUPIROCIN OINT 2% 22 GM TUBE SCH (21:41)
[2017-04-19] VITALS (11 sets, daily range): BP systolic 127–162; BP diastolic 56–73
[2017-04-19] MEDS: VANCOMYCIN 0.75 GM in IV D5W 250 ML IV SCH ×2 (00:31→18:46)
--- NOTE | 2017-04-19 06:58 | NUR ---
RN CLOSING NOTES AWAKE, ALERT AND ORIENTED X 2 WITH EPISODES OF CONFUSION. NO DISTRESS NOTED, NO COMPLAINT OF PAIN OR DISCOMFORT. VITAL SIGNS WNL. WILL ENDORSE TO AM SHIFT FOR CONTINUITY OF CARE
--- NOTE | 2017-04-19 07:00 | NUR ---
RN NOTES: RECEIVED PT ON BED ,RESPIRATION EVEN AND UNLABORED, NO SOB NOTED, ON RA, ON ROOM AIR, R UPPER ARM MIDLINE AND R HAND IV SITE CDI, SR UP x3, CALL LIGHT WITHIN EASY REACH, WILL CONTINUE TO MONITOR PT CLOSELY AND NOTIFY MD FOR ANY SIGNIFICANT CHANGES.
[2017-04-19 07:22] LABS: BASOPHILS % (AUTO) 0.4 % (0.0-2.0); EOSINOPHILS # (AUTO) 0.1 /CMM (0.0-0.7); EOSINOPHILS % (AUTO) 2.3 % (0.0-6.0); LYMPHOCYTES # (AUTO) 0.9 /CMM (0.8-4.8); LYMPHOCYTES % (AUTO) 36.3 % (20.0-44.0); MEAN CORPUSCULAR HEMOGLOBIN 33 PG (26.0-33.0); MEAN CORPUSCULAR HGB CONC 35 g/dl (31.0-36.0); MEAN CORPUSCULAR VOLUME 93 fL (82-100); MONOCYTES # (AUTO) 0.2 /CMM (0.1-1.30); MONOCYTES % (AUTO) 6.6 % (2.0-12.0); NEUTROPHILS # (AUTO) 1.3 /CMM (1.8-8.9); NEUTROPHILS % (AUTO) 54.4 % (43.0-81.0); PLATELET COUNT (AUTO) 96 /CMM (150-450); RDW COEFFICIENT OF VARIATION 22.1 (11.5-15.0); RED BLOOD CELL COUNT(AUTO) 2.05 MIL/uL (4.0-5.2); WHITE BLOOD COUNT (AUTO) 2.4 K/uL (4.3-11.0)
[2017-04-19 07:42] LABS: HEMATOCRIT 19 % (33-45); HEMOGLOBIN 6.7 g/dL (11.5-14.8)
--- NOTE | 2017-04-19 08:30 | NUR ---
RN NOTES DR BLANCHARD NOTIFED REGARDING H/H 6.04/07, NEW ORDER GIVEN .
[2017-04-19] MEDS: PANTOPRAZOLE 40 MG TABLET.DR PO SCH (08:51)
[2017-04-19] MEDS: LamoTRIgine 25 MG TABLET PO SCH (08:51)
[2017-04-19] MEDS: MUPIROCIN OINT 2% 22 GM TUBE SCH ×2 (08:57→22:12)
[2017-04-19 09:10] LABS: BAND % (MANUAL) 1 % (0.0-5.0); EOSINOPHILS % (MANUAL) 2 % (0-4); LYMPHOCYTES % (MANUAL) 35 % (16-48); MONOCYTES % (MANUAL) 6 % (0-11.0); NEUTROPHILS % (MANUAL) 56 (42-76)
[2017-04-19 09:15] LABS: CALCIUM, SERUM 8.1 mg/dL (8.5-10.1); CARBON DIOXIDE 23 mmol/L (21-32); CHLORIDE 105 mmol/L (98-107); CREATININE 0.9 mg/dL (0.6-1.3); GLUCOSE 87 mg/dL (74-106); POTASSIUM 3.6 mmol/L (3.5-5.1); SODIUM SERUM 138 mmol/L (136-145); UREA NITROGEN, BLOOD 14 mg/dL (7-18)
--- NOTE | 2017-04-19 10:00 | NUR ---
RN NOTES PT OUT OF THE BED TO BR WITH ASSIST, VSS STABLE , CONTINUE TO MONITOR .
[2017-04-19] MEDS: METOPROLOL SUCCINATE 25 MG TAB.SR.24H PO SCH (10:07)
[2017-04-19] MEDS: Magnesium 1GM/D5W 100ML PREMIX 100 ML IV SCH ×3 (10:22→14:09)
--- NOTE | 2017-04-19 14:16 | NUR ---
RN NOTES ONE UNITS OF BLOOD TRANSFUSED , PT TOLERATED WELL, NO COMPLICATION NOTED
--- NOTE | 2017-04-19 18:44 | NUR ---
RN NOTES PT STABLE , RESPIRATION EVEN AND UNLABORED, ON RA , CHRISTIANO ANY DISTRESS, SR UP x3, CALL LIGHT WITHIN EASY REACH, MEDICATED PER MD ORDER , NO SIGNIFICANT CHANGES NOTED ON THIS SHIFT .
--- NOTE | 2017-04-19 20:00 | NUR ---
RN NOTES RECEIVED PATIENT IN BED WITH NO DISTRESS NOTED. BREATHING EVEN AND UNLABORED. VITAL SIGNS WNL. IN BED AWAKE. ALERT AND ORIENTED WITH EPISODES OF CONFUSION. NO COMPLAINT OF PAIN OR DISCOMFORT. WILL CONTINUE TO MONITOR.
[2017-04-19] MEDS: MIRTAZAPINE 15 MG TABLET PO SCH (22:12)
[2017-04-20 04:00] VITALS: BP 152/51
[2017-04-20 06:46] LABS: BASOPHILS % (AUTO) 0.3 % (0.0-2.0); EOSINOPHILS % (AUTO) 1.8 % (0.0-6.0); HEMATOCRIT 26 % (33-45); HEMOGLOBIN 9.2 g/dL (11.5-14.8); LYMPHOCYTES # (AUTO) 1.1 /CMM (0.8-4.8); LYMPHOCYTES % (AUTO) 38.3 % (20.0-44.0); MEAN CORPUSCULAR HEMOGLOBIN 32 PG (26.0-33.0); MEAN CORPUSCULAR HGB CONC 35 g/dl (31.0-36.0); MEAN CORPUSCULAR VOLUME 92 fL (82-100); MONOCYTES # (AUTO) 0.2 /CMM (0.1-1.30); MONOCYTES % (AUTO) 6.8 % (2.0-12.0); NEUTROPHILS # (AUTO) 1.5 /CMM (1.8-8.9); NEUTROPHILS % (AUTO) 52.8 % (43.0-81.0); PLATELET COUNT (AUTO) 127 /CMM (150-450); RDW COEFFICIENT OF VARIATION 19.3 (11.5-15.0); RED BLOOD CELL COUNT(AUTO) 2.87 MIL/uL (4.0-5.2); WHITE BLOOD COUNT (AUTO) 2.8 K/uL (4.3-11.0)
--- NOTE | 2017-04-20 06:50 | NUR ---
RN CLOSING NOTES COMFORTABLY SLEEPING IN BED. NO COMPLAINT OF PAIN. NO RESPIRATORY DISTRESS OR SHORTNESS OF BREATH. VITAL SIGNS WNL. WILL ENDORSE TO AM SHIFT FOR CONTINUITY OF CARE.
--- NOTE | 2017-04-20 07:00 | NUR ---
RN NOTES RECEIVED PATIENT ON BED , ALERT, RESPIRATION EVEN AND UNLABORED , ON RA , NO SOB NOTED, IN BED WITH NO DISTRESS NOTED. BREATHING EVEN AND UNLABORED. CHRISTIANO ANY DISTRESS AT THIS TIME, R UPPER ARM MIDLINE AND R HAND IV SITE CDI, BED LOCKED AND IN LOWEST POSITION , BED ALARM ON FOR PT SAFETY ,WILL CONTINUE TO MONITOR PT CLOSELY AND NOTIFY MD FOR ANY SIGNIFICANT CHANGES .
[2017-04-20 07:25] LABS: CALCIUM, SERUM 8.3 mg/dL (8.5-10.1); CARBON DIOXIDE 23 mmol/L (21-32); CHLORIDE 105 mmol/L (98-107); CREATININE 0.8 mg/dL (0.6-1.3); GLUCOSE 93 mg/dL (74-106); POTASSIUM 3.7 mmol/L (3.5-5.1); SODIUM SERUM 136 mmol/L (136-145); UREA NITROGEN, BLOOD 16 mg/dL (7-18)
[2017-04-20 08:00] VITALS: BP 143/49
[2017-04-20 08:53] LABS: BAND % (MANUAL) 4 % (0.0-5.0); EOSINOPHILS % (MANUAL) 2 % (0-4); LYMPHOCYTES % (MANUAL) 35 % (16-48); MONOCYTES % (MANUAL) 4 % (0-11.0); NEUTROPHILS % (MANUAL) 55 (42-76)
[2017-04-20] MEDS: PANTOPRAZOLE 40 MG TABLET.DR PO SCH (08:53)
[2017-04-20] MEDS: LamoTRIgine 25 MG TABLET PO SCH (08:54)
[2017-04-20] MEDS: MUPIROCIN OINT 2% 22 GM TUBE SCH ×2 (08:56→21:10)
[2017-04-20] MEDS: METOPROLOL SUCCINATE 25 MG TAB.SR.24H PO SCH (08:56)
[2017-04-20] MEDS: Magnesium 1GM/D5W 100ML PREMIX 100 ML IV SCH ×3 (09:51→12:33)
--- NOTE | 2017-04-20 12:00 | NUR ---
RN NOTES PT OUT OF BED TO BATHROOM , VSS STABLE , CONTINUE TO MONITOR .
[2017-04-20] MEDS: VANCOMYCIN 0.75 GM in IV D5W 250 ML IV SCH (13:21)
[2017-04-20 16:00] VITALS: BP 130/67
--- NOTE | 2017-04-20 18:47 | NUR ---
RN NOTES PT STABLE , OUT OF BED TO BATHROOM WITH ASSIST , RESPIRATION EVEN AND UNLABORED, NO SOB NOTED, MEDICATED PER MD ORDER , NO SIGNIFICANT CHANGES NOTED ON THIS SHIFT.
--- NOTE | 2017-04-20 19:35 | NUR ---
RN INITIAL NOTE RECEIVED PT IN NO ACUTE DISTRESS IN BED. PT IS A/O X 2 WITH PERIODS OF CONFUSION. PT IS ON RA AND TOLERATING WELL WITH O2 SAT @ 98%. PT NOT C/O ANY SOB, DIFFICULTY BREATHING OR PAIN AT THIS TIME. PT HAS DIANNA MIDLINE THAT IS CLEAN DRY INTACT AND PATENT WITH SALINE FLUSH. PT HAS RHAND 22G THAT IS CLEAN DRY INTACT AND PATENT WITH SALINE FLUSH. BED IN LOW LOCK POSITION WITH RIALS UP X 2. CALL LIGHT WITHIN REACH AND ALL SAFETY MEASURES ENSURED AND CARRIED OUT. WILL CONTINUE TO MONITOR PT.
[2017-04-20 20:00] VITALS: BP 155/60
[2017-04-20] MEDS: MIRTAZAPINE 15 MG TABLET PO SCH (21:09)
[2017-04-21 00:06] VITALS: BP 155/70
[2017-04-21 04:00] VITALS: BP 154/68
[2017-04-21 04:34] VITALS: BP 154/68
[2017-04-21] MEDS: PANTOPRAZOLE 40 MG TABLET.DR PO SCH (07:30)
[2017-04-21 08:00] VITALS: BP 154/52
[2017-04-21 08:26] LABS: CALCIUM, SERUM 9.1 mg/dL (8.5-10.1); CARBON DIOXIDE 24 mmol/L (21-32); CHLORIDE 105 mmol/L (98-107); CREATININE 0.8 mg/dL (0.6-1.3); GLUCOSE 86 mg/dL (74-106); POTASSIUM 3.6 mmol/L (3.5-5.1); SODIUM SERUM 138 mmol/L (136-145); UREA NITROGEN, BLOOD 14 mg/dL (7-18)
[2017-04-21] MEDS: MUPIROCIN OINT 2% 22 GM TUBE SCH ×2 (09:32→21:47)
[2017-04-21] MEDS: LamoTRIgine 25 MG TABLET PO SCH (09:32)
[2017-04-21] MEDS: METOPROLOL SUCCINATE 25 MG TAB.SR.24H PO SCH (09:33)
[2017-04-21] MEDS: VANCOMYCIN 0.75 GM in IV D5W 250 ML IV SCH (09:33)
[2017-04-21 16:00] VITALS: BP 150/55
--- NOTE | 2017-04-21 18:56 | NUR ---
RN NOTE DURING THIS SHIFT PATIENT DID NOT COMPLAIN OF PAIN. DENIES SOB ON ROOM AIR, DENIES CHEST PAIN. PATIENTS STATES SHE DOES NOT WANT TO TALK WHEN ASKING ABOUT SHOULDER DISCOMFORT. SHE AMBULATED TO THE BATHROOM WITH ASSISTANCE, NO FALLS. DIANNA IV REMAINS PATENTS, NO COMPLICATIONS. EDUCATION PROVIDED REGARDING HUMERAL FX AND SURGERY. PATIENT STATES SHE CANNOT DECIDE WHETHER SHE WANTS TO UNDER GO SURGERY. STATED SHE WILL DECIDE BY TOMORROW. YANET TAO AND DR. BLANCHARD WERE INFORMED OF THIS. ENCOURAGED REPOSITIONING AND PROM THIS SHIFT. PROVIDED ADL AND SKIN CARE. PATIENT CONSUMED >50% PO INTAKE. WILL GIVE REPORT TO INSPECTOR GOLF BALL. CALL LIGHT IN REACH AND EDUCATED ON USE.
[2017-04-21 20:00] VITALS: BP 146/72
--- NOTE | 2017-04-21 20:00 | NUR ---
RN NOTES RECEIVED PATIENT IN BED, AWAKE, ALERT AND ORIENTED. ABLE TO VERBALIZE NEEDS. NO DISTRESS NOTED, BREATHING EVEN AND UNLABORED. NO COMPLAINT OF PAIN OF THIS TIME. ABDOMEN SOFT AND NON TENDER, BOWEL SOUNDS PRESENT IN ALL FOUR QUADRANTS. WILL CONTINUE TO MONITOR.
[2017-04-21] MEDS: MIRTAZAPINE 15 MG TABLET PO SCH (21:47)
[2017-04-22] MEDS: VANCOMYCIN 0.75 GM in IV D5W 250 ML IV SCH ×2 (01:15→19:04)
[2017-04-22 04:00] VITALS: BP 159/75
[2017-04-22 07:35] LABS: CALCIUM, SERUM 9.5 mg/dL (8.5-10.1); CARBON DIOXIDE 26 mmol/L (21-32); CHLORIDE 103 mmol/L (98-107); CREATININE 0.8 mg/dL (0.6-1.3); GLUCOSE 95 mg/dL (74-106); POTASSIUM 3.8 mmol/L (3.5-5.1); SODIUM SERUM 138 mmol/L (136-145); UREA NITROGEN, BLOOD 17 mg/dL (7-18)
--- NOTE | 2017-04-22 07:53 | NUR ---
RN CLOSING NOTES IN BED SLEEPING, NO DISTRESS NOTED. NO PHYSICAL MANIFESTATION OF PAIN OR DISCOMFORT. NO SIGNIFICANT CHANGE OF CONDITION. WILL ENDORSE TO AM SHIFT FOR CONTINUATION OF CARE.
[2017-04-22 08:00] VITALS: BP 115/61
[2017-04-22] MEDS: LamoTRIgine 25 MG TABLET PO SCH (09:09)
[2017-04-22] MEDS: METOPROLOL SUCCINATE 25 MG TAB.SR.24H PO SCH (09:10)
[2017-04-22] MEDS: PANTOPRAZOLE 40 MG TABLET.DR PO SCH (09:11)
[2017-04-22] MEDS: MUPIROCIN OINT 2% 22 GM TUBE SCH ×2 (09:11→21:47)
[2017-04-22 16:00] VITALS: BP 134/62
[2017-04-22] MEDS ORDERED: SODIUM POLYSTYRENE SULFONATE 15 G/60 ML BOTTLE PO ONE (16:00)
--- NOTE | 2017-04-22 19:26 | NUR ---
PATIENT SIGNED CONSENT FOR SURGERY AND ANESTHESIA WITH DR. BLANCHARD AT BED SIDE- LEFT A MESSAGE FOR YANET TAO INQUIRING ABOUT SCHEDULING AND NPO PLANNING. PATIENT IN STABLE CONDITION AT THIS TIME- HANDED OFF REPORT.
[2017-04-22 20:00] VITALS: BP 148/87
[2017-04-22] MEDS: MIRTAZAPINE 15 MG TABLET PO SCH (21:47)
--- NOTE | 2017-04-22 22:00 | NUR ---
RN NOTE ENDORSE REPORT TO 3 NESTOR RN FOR CONTINUITY OF CARE.
--- NOTE | 2017-04-22 22:10 | NUR ---
RN INITIAL NOTES: RECEIVED REPORT FROM EMY TIRADO , PT IN BED A/O 3 ON ROOM AIR RESPIRATION EVEN AND UNLABORED, DENIES ANY PAIN OR DISCOMFORT AT THIS TIME, PT NOTED TO HAVE LACERATION ON FOREHEAD WITH STERI STRIPS NOTED, NO ACTIVE BLEEDING AT THIS TIME. PT HAS DIANNA MIDLINE IN PLACED AND RIGHT HAND IV ACCESS, BOTH PATENT AND FLUSHING WELL, ON HL. NO S/S OF REDNESS OR INFILTRATION NOTED. PT FOR LEFT HUMERUS ORIF WITH DR WILSON AWAITING FOR SCHEDULE. CONSENT SECURED BY PREVIOUS RN. SAFETY PRECAUTIONS FOR FALL INITIATED CALL LIGHT IN REACH WILL CONTINUE TO MONITOR
--- NOTE | 2017-04-23 | NUR ---
RN NOTES: INFORM PT THAT SHE IS FOR POSSIBLE SURGERY IN AM, AND THAT IN PREPARATION SHE WILL BE NOTHING TO EAT OR DRINK AFTER MIDNIGHT, PT AGREE, WATER PITCHER REMOVED,
--- NOTE | 2017-04-23 00:41 | NUR ---
RN NOTES: ASSISTED PT TO THE BATHROOM, ABLE TO AMBULATE WITH ASSISTANCE, PT REQUESTED DIAPER IN CASE OF ACCIDENT, ASSISTED BACK TO BED AFTERWARDS
[2017-04-23 04:00] VITALS: BP 142/70
--- NOTE | 2017-04-23 05:31 | NUR ---
rn notes: pt called c/o that she's short of breath, checked pt's vs and spo2 shows 97% on ra, respiration even and unlabored, pulled pt up, placed on high de anda's but pt refused and stated "she needs help, she needs to be on the wall", when asked what does she meant by that pt unable to explain herself clearly, pt a/o x2 only, placed on oxygen, but pt kept taking it off.
--- NOTE | 2017-04-23 06:39 | NUR ---
REFUSED BLOOD WORKS: APPROACHED BY CLINICAL STUDIES SPECIALIST, SHE STATED PT REFUSED TO DRAW BLOOD, TALKED TO THE PT EXPLAIN IMPORTANCE OF BLOOD WORKS AND COMPLIANCE BUT PT INSISTED TO REFUSED,
--- NOTE | 2017-04-23 06:43 | NUR ---
RN CLOSING NOTES: PT IN BED, AWAKE, REMAINS A/O X2, ON ROOM AIR DENIES ANY SOB, DENIES ANY PAIN OR DISCOMFORT. DIANNA MIDLINE REMAINS PATENT AND FLUSHING WELL, ON HL. NWB ON LUE PER MD. AWAITING FOR SURGERY SCHEDULE, NOTED CONSENT SECURED BY DAY RN WAS SIGNED BY THE PT, BUT PT ON AND OFF CONFUSED, MAYBE IT WILL BE SAFE TO ASKED FAMILY MEMBER REGARDING SURGERY AND OBTAIN CONENT, THIS MATTER WILL BE RELAY TO DAY RN. VS REMAINS STABLE, NEEDS ATTENDED, SAFETY PRECAUTIONS FOR FALL REMAINS ENGAGED CALL LIGHT IN REACH WILL ENDORSE TO DAY RN FOR ADRIANE.
[2017-04-23] MEDS: PANTOPRAZOLE 40 MG TABLET.DR PO SCH (07:18)
[2017-04-23 08:00] VITALS: BP 126/65
[2017-04-23 09:08] LABS: CALCIUM, SERUM 10.4 mg/dL (8.5-10.1); CARBON DIOXIDE 26 mmol/L (21-32); CHLORIDE 100 mmol/L (98-107); CREATININE 0.9 mg/dL (0.6-1.3); GLUCOSE 90 mg/dL (74-106); POTASSIUM 4.1 mmol/L (3.5-5.1); SODIUM SERUM 132 mmol/L (136-145); UREA NITROGEN, BLOOD 18 mg/dL (7-18)
[2017-04-23] MEDS: METOPROLOL SUCCINATE 25 MG TAB.SR.24H PO SCH (09:13)
[2017-04-23] MEDS: LamoTRIgine 25 MG TABLET PO SCH (09:13)
[2017-04-23] MEDS: MUPIROCIN OINT 2% 22 GM TUBE SCH ×2 (09:14→21:07)
--- NOTE | 2017-04-23 12:00 | NUR ---
RN MS NOTES RECEIVED PATIENT FROM MICHEAL TIRADO, PATIENT ALERT AND ORIENTED, NO DISTRESS NOTED, WILL CONTINUE TO MONITOR.
[2017-04-23] MEDS: VANCOMYCIN 0.75 GM in IV D5W 250 ML IV SCH (13:13)
--- NOTE | 2017-04-23 18:41 | NUR ---
RN MS NOTES PATIENT IN BED ALERT AND ORIENTED, NO DISTRESS NOTED, BREATHING EVEN AND UNLABORED, ASSISTED WITH ADLS, SPOKE WITH CHERYL GALVANIZER AND PER GALVANIZER DR. WILSON WILL SCHEDULE ORIF SURGERY ON WEDNESDAY OR WEDNESDAY, WILL CALL FOR F/U ON THE FINAL DATE AND TIME, DIANNA MIDLINE PATENT AND INTACT FLUSHES WELL WITH NS, SAFETY MEASURES IN PLACED, CALL LIGHT WITHIN REACH, WILL ENDORSE TO DENTAL HYGIENIST MOBILE COORDINATOR FOR ADRIANE.
--- NOTE | 2017-04-23 19:35 | NUR ---
MS RN NOTE RECEIVED PATIENT FROM DAY SHIFT, PATIENT IS ALERT AND ORIENTEDX2, [place] CITIZ[place] SPEAKER, NO S/S OF RESPIRATORY DISTRESS, ON ROOM AIR, NO PAIN REPORTED AT THIS TIME. RIGHT UPPER ARM MID LINE IS PATENT AND INTACT, HL ONLY. SRX2, BED IN LOW POSITION, CALL LIGHT WITHIN REACH, WILL CONTINUE TO MONITOR PATIENT.
[2017-04-23 20:00] VITALS: BP 146/68
[2017-04-23 20:57] VITALS: BP 146/68
[2017-04-23] MEDS: MIRTAZAPINE 15 MG TABLET PO SCH (21:07)
[2017-04-24 06:32] LABS: CALCIUM, SERUM 10.1 mg/dL (8.5-10.1); CARBON DIOXIDE 26 mmol/L (21-32); CHLORIDE 102 mmol/L (98-107); CREATININE 0.9 mg/dL (0.6-1.3); GLUCOSE 93 mg/dL (74-106); POTASSIUM 4.1 mmol/L (3.5-5.1); SODIUM SERUM 135 mmol/L (136-145); UREA NITROGEN, BLOOD 18 mg/dL (7-18)
--- NOTE | 2017-04-24 06:57 | NUR ---
MS RN NOTE PATIENT IS RESTING IN BED COMFORTABLY, NO S/S OF RESPIRATORY DISTRESS OR PAIN AT THIS TIME. MORNING CARE RENDERED, MID LINE IS PATENT AND INTACT. NO ACUTE CHANGE OF CONDITION PRESENT. WILL ENDORSE TO DAY SHIFT NURSE FOR ADRIANE.
--- NOTE | 2017-04-24 07:10 | NUR ---
MS RN INITIAL NOTE: RECEIVED PATIENT RESTING COMFORTABLY IN BED AND EASILY AWAKEN TO TOUCH. STERI STRIPS NOTED ON LEFT EYEBROW. ON RA WITH RESPIRATIONS EVEN AND UNLABORED. NO SOB OR RESPIRATORY DISTRESS NOTED. DIANNA MIDLINE PATENT AND INTACT. BED LOW, LOCKED WITH CALL LIGHT WITHIN REACH. ISOLATION PRECAUTIONS IN PLACE. WILL CONT TO MONITOR.
[2017-04-24] MEDS: PANTOPRAZOLE 40 MG TABLET.DR PO SCH (07:30)
[2017-04-24 08:00] VITALS: BP 131/61
--- NOTE | 2017-04-24 09:05 | NUR ---
MS RN NOTE: CALLED DAUGHTER SUNSHINE CURRY REGARDING CONSENT FOR SURGERY. PER DAUGHTER, IS NOT LEGALLY [place] TO GIVE CONSENT FOR SURGERY IF HER MOTHER CAN SPEAK FOR HERSELF.
[2017-04-24] MEDS: LamoTRIgine 25 MG TABLET PO SCH (09:09)
[2017-04-24] MEDS: MUPIROCIN OINT 2% 22 GM TUBE SCH ×2 (09:15→22:35)
[2017-04-24 09:17] VITALS: BP 131/61
[2017-04-24] MEDS: METOPROLOL SUCCINATE 25 MG TAB.SR.24H PO SCH (09:22)
[2017-04-24 12:00] VITALS: BP 113/54
--- NOTE | 2017-04-24 12:30 | NUR ---
MS RN NOTE: DR. THAPA SEEN PATIENT AT BEDSIDE. NEW ORDERS ENTERED.
--- NOTE | 2017-04-24 12:35 | NUR ---
MS RN NOTE: SPOKE TO PHARMACY. LAST VANCO TROUGH ON 04/22/17 2330. PER PHARMACY, WILL ARRANGE FOR NEXT VANCO TROUGH AND OK TO GIVE 1300 VANCO IV D5W 250ML TODAY.
[2017-04-24] MEDS: VANCOMYCIN 0.75 GM in IV D5W 250 ML IV SCH (12:59)
[2017-04-24] MEDS: MULTIVITAMINS,THERAGRAN 1 UDTAB TABLET PO SCH (13:00)
--- NOTE | 2017-04-24 15:21 | NUR ---
MS RN NOTE: CONTACTED CAFETERIA TO VERIFY 1300 BOOST ORDER. PER CAFETERIA, WAS NOT AWARE AND ORDER NOW IN.
--- NOTE | 2017-04-24 15:50 | NUR ---
MS RN NOTE: CALLED [employer]ENTRAL [employer]PPLY FOR DVT PUMPS.
[2017-04-24 16:00] VITALS: BP 119/57
[2017-04-24] MEDS: BOOST PLUS FOOD-CHOCLATE 237 ML BOX PO SCH (16:05)
--- NOTE | 2017-04-24 19:25 | NUR ---
MS RN NOTE: NO ACUTE CHANGES DURING SHIFT. PATIENT REMAINED ALERT AND ORIENTED. NEEDS ATTENDED AND ORDERS CARRIED OUT. ISOLATION PRECAUTIONS REMAINED IN PLACE. ENDORSED TO LOADER MALT HOUSE NURSE FOR ADRIANE.
[2017-04-24 20:00] VITALS: BP 124/58
--- NOTE | 2017-04-24 20:00 | NUR ---
MS RN NOTES RECEIVED OPTS ON BED AWAKE AND RESPONSIVE , ALL NEEDS ATTENDED TOO CALLLIGHT WITHIN REACH , WITH RIGHT UA MIDLINE INTACT AND PATENT , OFFER SOME FLUIDS PTS REFUSED.PTS FOR POSSIBLE SURGERY ON WEDNESDAY OR WEDNESDAY , NEEDS TO OBTAIN CONSENT FOR SURGERY PER ENDORSEMENT FROM [place] DAUGHTER IS NOT SIGNING THE CONSENT , WILL ENDORSE IN AM TO F/U .
[2017-04-24] MEDS: MIRTAZAPINE 15 MG TABLET PO SCH (22:00)
--- NOTE | 2017-04-24 22:00 | NUR ---
MS RNNOTES DUE MEDS REMERON AT 10 PM WAS NOT GIVEN SECONDARY TO PTS REFUSAL, EXPLAIN R/B PTS STILL REFUSING.
[2017-04-25 06:00] VITALS: BP 126/63
[2017-04-25 07:21] LABS: BASOPHILS % (AUTO) 0.4 % (0.0-2.0); EOSINOPHILS # (AUTO) 0.1 /CMM (0.0-0.7); HEMATOCRIT 23 % (33-45); HEMOGLOBIN 7.8 g/dL (11.5-14.8); LYMPHOCYTES % (AUTO) 37.2 % (20.0-44.0); MEAN CORPUSCULAR HEMOGLOBIN 32 PG (26.0-33.0); MEAN CORPUSCULAR HGB CONC 34 g/dl (31.0-36.0); MEAN CORPUSCULAR VOLUME 93 fL (82-100); MONOCYTES # (AUTO) 0.2 /CMM (0.1-1.30); MONOCYTES % (AUTO) 7.2 % (2.0-12.0); NEUTROPHILS # (AUTO) 1.4 /CMM (1.8-8.9); NEUTROPHILS % (AUTO) 53.2 % (43.0-81.0); PLATELET COUNT (AUTO) 248 /CMM (150-450); RDW COEFFICIENT OF VARIATION 18.6 (11.5-15.0); RED BLOOD CELL COUNT(AUTO) 2.46 MIL/uL (4.0-5.2); WHITE BLOOD COUNT (AUTO) 2.6 K/uL (4.3-11.0)
[2017-04-25] MEDS: PANTOPRAZOLE 40 MG TABLET.DR PO SCH ×3 (07:30→09:11)
[2017-04-25 07:32] LABS: ALANINE AMINOTRANSFERASE 14 U/L (12-78); ALBUMIN 1.7 g/dL (3.4-5.0); ALKALINE PHOSPHATASE 70 U/L (46-116); ASPARTATE AMINOTRANSFERASE 14 U/L (15-37); BILIRUBIN,TOTAL 0.5 mg/dL (0.2-1.0); CALCIUM, SERUM 10.7 mg/dL (8.5-10.1); CARBON DIOXIDE 27 mmol/L (21-32); CHLORIDE 101 mmol/L (98-107); GLUCOSE 89 mg/dL (74-106); POTASSIUM 4.1 mmol/L (3.5-5.1); SODIUM SERUM 133 mmol/L (136-145); TOTAL PROTEIN, SERUM 11.6 g/dL (6.4-8.2); UREA NITROGEN, BLOOD 22 mg/dL (7-18)
[2017-04-25 07:39] LABS: THYROID STIMULATING HORMONE 0.733 uIU/mL (0.358-3.74)
[2017-04-25 08:00] VITALS: BP 99/57
[2017-04-25 08:36] LABS: BAND % (MANUAL) 2 % (0.0-5.0); EOSINOPHILS % (MANUAL) 2 % (0-4); LYMPHOCYTES % (MANUAL) 30 % (16-48); MONOCYTES % (MANUAL) 5 % (0-11.0); NEUTROPHILS % (MANUAL) 61 (42-76)
[2017-04-25] MEDS: MULTIVITAMINS,THERAGRAN 1 UDTAB TABLET PO SCH ×3 (09:00→09:11)
[2017-04-25] MEDS: METOPROLOL SUCCINATE 25 MG TAB.SR.24H PO SCH (09:06)
[2017-04-25] MEDS: LamoTRIgine 25 MG TABLET PO SCH (09:07)
[2017-04-25] MEDS: BOOST PLUS FOOD-CHOCLATE 237 ML BOX PO SCH ×2 (09:09→16:35)
[2017-04-25] MEDS: MUPIROCIN OINT 2% 22 GM TUBE SCH ×2 (09:11→21:22)
--- NOTE | 2017-04-25 10:12 | NUR ---
MS RN INITIAL NOTE: RECEIVED PATIENT RESTING COMFORTABLY IN BED AND EASILY AWAKEN TO TOUCH. STERI STRIPS NOTED ON LEFT EYEBROW. ON RA WITH RESPIRATIONS EVEN AND UNLABORED. NO SOB OR RESPIRATORY DISTRESS NOTED. DIANNA MIDLINE PATENT AND INTACT. BED LOW, LOCKED WITH CALL LIGHT WITHIN REACH. ISOLATION PRECAUTIONS IN PLACE. RN WILL CONT TO MONITOR.
[2017-04-25] MEDS: MEGESTROL ACETATE SUSP 400 MG/10 ML UDC PO SCH ×2 (10:30→16:35)
--- NOTE | 2017-04-25 11:07 | NUR ---
RN NOTE PATIENT REFUSED NEW MEDICATION SHE STATED " NO , I ALREADY TOOK MY MEDICATION " RN EXPLAINED THE RATIONAL BEHIND THE NEW MEDICATION PATIENT DOESN'T ACKNOWLEDGE. RN WILL CONTINUE TO FOLLOW
[2017-04-25] MEDS: VANCOMYCIN 0.75 GM in IV D5W 250 ML IV SCH (12:40)
--- NOTE | 2017-04-25 15:04 | NUR ---
RN NOTE PATIENT MIDLINE NOT FUNCTIONING , LEAKING. CHARGE NURSE SOON INFORMED WILL INSERT PERIPHERAL ANNAMARIA
--- NOTE | 2017-04-25 16:36 | NUR ---
RN NOTE PATIENT HAS REFUSED PM MEDICATION AND ALSO BOOST . RN AND RICO ROBIN EXPLAINED THE IMPORTANCE OF MEDICATION ADHERENCE AND ALSO NUTRITIONAL SUPPLEMENTS. PT ALSO SEEMS SLIGHT MORE CONFUSED LATER IN THE DAY IN COMPARISON TO EARLIER TODAY. RN WILL CONTINUE TO FOLLOW.
--- NOTE | 2017-04-25 18:34 | NUR ---
MS RN CLOSING NOTE: RECEIVED PATIENT RESTING COMFORTABLY IN BED AND EASILY AWAKEN TO TOUCH. STERI STRIPS STILL PRESENT ON PATIENT LEFT EYEBROW. PT ON RA WITH RESPIRATIONS EVEN AND UNLABORED. NO SOB OR RESPIRATORY DISTRESS NOTED. DIANNA MIDLINE D/C DUE TO LEAKING , 22G PERIPHERAL IV ADDED RIGHT WRIST. BED LOW, LOCKED WITH CALL LIGHT WITHIN REACH. ISOLATION PRECAUTIONS IN PLACE. RN WILL ENDORSE CARE TO PM SHIFT
--- NOTE | 2017-04-25 19:35 | NUR ---
MS RN INITIAL NOTE RECEIVED PT RESTING IN BED. A/O X 2 WITH EPISODES OF CONFUSION, BUT ABLE TO MAKE SOME NEEDS KNOWN. ABLE TO AMBULATE WITH ASSIST. ON ROOM AIR AND SATURATING WELL. IV R WRIST #22 SL CLEAN, DRY AND FLUSHING WELL. BED LOCKED AND IN LOWEST POSITION. BED ALARM ON. CALL LIGHT WITHIN EASY REACH AT ALL TIMES. WILL CONTINUE TO MONITOR.
[2017-04-25 20:00] VITALS: BP 125/76
[2017-04-25] MEDS: MIRTAZAPINE 15 MG TABLET PO SCH (21:22)
[2017-04-26 04:00] VITALS: BP 140/72
--- NOTE | 2017-04-26 06:50 | NUR ---
MS RN CLOSING NOTE NO ACUTE DISTRESS NOTED AT THIS TIME. NO SOB. NO C/O PAIN OR DISCOMFORT. PT REFUSED TO TAKE PICTURE OF LEFT SHOULDER/ARM WHERE THERE'S NOTED DISCOLORATION. EXPLAINED BENEFITS AND RISKS X'S 3 AND PT STILL REFUSED. ALL NEEDS ATTENDED TO PROMPTLY. ASSISTED TO THE RESTROOM SAFELY. BED ALARM ON AND BED LOCKED IN PLACE. ALL SAFETY MEASURES IN PLACE. CALL LIGHT WITHIN EASY REACH. ISOLATION PRECAUTIONS OBSERVED. WILL ENDORSE TO NEXT SHIFT FOR ADRIANE.
[2017-04-26 06:57] LABS: CARBON DIOXIDE 25 mmol/L (21-32); CHLORIDE 102 mmol/L (98-107); CREATININE 1.1 mg/dL (0.6-1.3); GLUCOSE 92 mg/dL (74-106); POTASSIUM 4.1 mmol/L (3.5-5.1); SODIUM SERUM 135 mmol/L (136-145); UREA NITROGEN, BLOOD 22 mg/dL (7-18)
--- NOTE | 2017-04-26 07:00 | NUR ---
MS RN INITIAL NOTE: RECEIVED PATIENT RESTING COMFORTABLY IN BED AND EASILY AWAKEN TO TOUCH. STERI STRIPS NOTED ON LEFT EYEBROW. ON RA WITH RESPIRATIONS EVEN AND UNLABORED. NO SOB OR RESPIRATORY DISTRESS NOTED. 22g peripheral iv RIGHT WRIST INTACT. BED LOW, LOCKED WITH CALL LIGHT WITHIN REACH. ISOLATION PRECAUTIONS IN PLACE. RN WILL CONT TO MONITOR.
[2017-04-26 08:00] VITALS: BP 131/56
[2017-04-26] MEDS: BOOST PLUS FOOD-CHOCLATE 237 ML BOX PO SCH ×3 (08:00→17:00)
[2017-04-26] MEDS: PANTOPRAZOLE 40 MG TABLET.DR PO SCH (08:46)
[2017-04-26] MEDS: LamoTRIgine 25 MG TABLET PO SCH (08:46)
[2017-04-26] MEDS: MEGESTROL ACETATE SUSP 400 MG/10 ML UDC PO SCH ×2 (08:46→08:50)
[2017-04-26] MEDS: METOPROLOL SUCCINATE 25 MG TAB.SR.24H PO SCH (08:46)
[2017-04-26] MEDS: MUPIROCIN OINT 2% 22 GM TUBE SCH ×2 (08:47→21:12)
--- NOTE | 2017-04-26 08:53 | NUR ---
RN NOTE PATIENT REFUSED SOME OF HER MORNING MEDICATION AND MORNING BOOST SHE STATED " I ONLY TAKE THE WHITE PILLS " RN EXPLAINED THE RATIONAL BEHIND THE MEDICATION PATIENT DOESN'T ACKNOWLEDGE. RN WILL CONTINUE TO FOLLOW
--- NOTE | 2017-04-26 13:49 | NUR ---
RN NOTE RN CONTACTED PATIENTS DAUGHTER WITHOUT ANY RESPOND PURPOSE FOR CALL AND CALL BACK NUMBER LEFT ON PATIENT DAUGHTER VOICEMAIL RN AWAITING RETURN CALL . FOR CONSENT TO SURGICAL PROCEDURE OF ORIF . [facility] [id number]
--- NOTE | 2017-04-26 13:52 | NUR ---
RN NOTE RN CONTACTED LAB IN REGARDS TO THE PATIENT VANC TROUGH STILL PENDING , AND THE NEED TO HANG THE PATIENT VANCOMYCIN RN WILL CONTINUE TO FOLLOW
[2017-04-26] MEDS: VANCOMYCIN 0.75 GM in IV D5W 250 ML IV SCH (15:18)
[2017-04-26 16:00] VITALS: BP 123/54
--- NOTE | 2017-04-26 16:20 | NUR ---
RN NOTE RN ATTEMPTED TO REACH THE PATIENT AGAIN IN REGARDS TO THE PATIENTS CARE . NO ANSWER , VOICEMAIL LEFT AND RETURN NUMBER. RN WILL CONTINUE TO FOLLOW THE PATIENTS PROGRESS.
--- NOTE | 2017-04-26 17:13 | NUR ---
RN NOTE RN SPOKE WITH SENIOR SYSTEMS ENGINEER PROVIDER ALIE APODACA MD IN REGARDS TO DISCHARGE PLANNING FOR THE PATIENT PER MD BLANCHARD ORDERS.MD STRANGE STATES TO FOLLOW THROUGH WITH DISCHARGE ORDERS AFTER MIDLINE PLACEMENT.
--- NOTE | 2017-04-26 17:50 | NUR ---
RN NOTE PATIENT REFUSED PM BOOST
--- NOTE | 2017-04-26 18:13 | NUR ---
RN NOTE RN SPOKE TO THE PATIENTS DAUGHTER IN REGARDS TO THE PATIENT PLAN OF CARE EXTENSIVELY , DAUGHTER STATES THAT WE SHOULD FOLLOW THE MOTHER REQUEST TO NOT HAVE THE ORIF SURGERY.RN REPORTED DAUGHTERS WISHES TO CHARGE NURSE
--- NOTE | 2017-04-26 18:38 | NUR ---
MS RN CLOSING NOTE NO ACUTE DISTRESS NOTED AT THIS TIME. NO SOB. NO C/O PAIN OR DISCOMFORT. PT REFUSED MEDICATION THROUGHOUT THE DAY . EXPLAINED BENEFITS AND RISKS AND PT STILL REFUSED. ALL NEEDS ATTENDED TO PROMPTLY. ASSISTED TO THE RESTROOM SAFELY. BED ALARM ON AND BED LOCKED IN PLACE. ALL SAFETY MEASURES IN PLACE. CALL LIGHT WITHIN EASY REACH. ISOLATION PRECAUTIONS OBSERVED. WILL ENDORSE TO PM SHIFT FOR ADRIANE.
--- NOTE | 2017-04-26 19:30 | NUR ---
MS RN INITIAL NOTE RECEIVED PT RESTING IN BED. A/O X 2 AND ABLE TO MAKE SOME NEEDS KNOWN. ON ROOM AIR AND SATURATING WELL. IV R WRIST AND DIANNA MIDLINE CLEAN, PATENT AND FLUSHING WELL. ISOLATION PRECAUTIONS OBSERVED. PT REFUSED VITAL SIGNS. EXPLAINED REASONS WHY VITAL SIGNS ARE IMPORTANT X'S 3 AND PT STILL REFUSED. WILL TRY AGAIN AT A LATER TIME. CALL LIGHT WITHIN REACH. BED IN LOWEST POSITION AND LOCKED WITH BED ALARM ON. WILL CONTINUE TO MONITOR.
[2017-04-26 20:00] VITALS: BP 123/54
[2017-04-26] MEDS: MIRTAZAPINE 15 MG TABLET PO SCH (21:12)
[2017-04-27 06:44] LABS: CALCIUM, SERUM 9.9 mg/dL (8.5-10.1); CARBON DIOXIDE 26 mmol/L (21-32); CHLORIDE 102 mmol/L (98-107); CREATININE 1.1 mg/dL (0.6-1.3); GLUCOSE 88 mg/dL (74-106); POTASSIUM 3.9 mmol/L (3.5-5.1); SODIUM SERUM 136 mmol/L (136-145); UREA NITROGEN, BLOOD 24 mg/dL (7-18)
--- NOTE | 2017-04-27 06:49 | NUR ---
MS RN CLOSING NOTE REMAINED STABLE DURING SHIFT. BED ALARM ON. ISOLATION PRECAUTIONS OBSERVED. ALL NEEDS ATTENDED TO PROMPTLY. ALL SAFETY MEASURES IN PLACE. ASSISTED TO THE RESTROOM THROUGHOUT THE NIGHT. CALL LIGHT WITHIN EASY REACH. WILL ENDORSE TO NEXT SHIFT FOR ADRIANE.
[2017-04-27] MEDS: PANTOPRAZOLE 40 MG TABLET.DR PO SCH (07:30)
[2017-04-27 08:00] VITALS: BP 125/65
[2017-04-27] MEDS: BOOST PLUS FOOD-CHOCLATE 237 ML BOX PO SCH ×2 (08:00→16:46)
--- NOTE | 2017-04-27 08:33 | NUR ---
MS RN INITIAL NOTE: RECEIVED PATIENT RESTING COMFORTABLY IN BED AND EASILY AWAKEN TO TOUCH. STERI STRIPS NOTED ON LEFT EYEBROW. ON RA WITH RESPIRATIONS EVEN AND UNLABORED. NO SOB OR RESPIRATORY DISTRESS NOTED. 22g peripheral iv RIGHT WRIST INTACT AND DIANNA MIDLINE SL . BED LOW, LOCKED WITH CALL LIGHT WITHIN REACH. ISOLATION PRECAUTIONS IN PLACE. RN WILL CONT TO MONITOR.
[2017-04-27] MEDS: MUPIROCIN OINT 2% 22 GM TUBE SCH ×2 (09:00→21:08)
[2017-04-27] MEDS: LamoTRIgine 25 MG TABLET PO SCH (09:34)
[2017-04-27] MEDS: METOPROLOL SUCCINATE 25 MG TAB.SR.24H PO SCH (09:35)
--- NOTE | 2017-04-27 12:30 | NUR ---
RN NOTE PATIENT DISCHARGE PENDING TRANSESOPHAGEAL ECHOCARDIOGRAM . RN WILL CONTINUE TO FOLLOW
[2017-04-27] MEDS: VANCOMYCIN 0.75 GM in IV D5W 250 ML IV SCH (15:54)
--- NOTE | 2017-04-27 16:40 | NUR ---
RN NOTE PATIENT 4PM VITAL SIGNS ARE 97.4- TEMP, HR 85, RESP 17, O2-97 B/P 121/53, NO SOB NOTED
--- NOTE | 2017-04-27 18:20 | NUR ---
MS RN CLOSING NOTE NO ACUTE DISTRESS NOTED AT THIS TIME. NO SOB. NO C/O PAIN OR DISCOMFORT. PT REFUSED MEDICATION AND BOOST THROUGHOUT THE DAY . EXPLAINED BENEFITS AND RISKS AND PT STILL REFUSED. ALL NEEDS ATTENDED TO PROMPTLY. ASSISTED TO THE RESTROOM SAFELY. BED ALARM ON AND BED LOCKED IN PLACE. ALL SAFETY MEASURES IN PLACE. CALL LIGHT WITHIN EASY REACH. ISOLATION PRECAUTIONS OBSERVED. WILL ENDORSE TO PM SHIFT FOR ADRIANE.
[2017-04-27 20:00] VITALS: BP 107/50
[2017-04-27 20:08] VITALS: BP 107/50
[2017-04-27] MEDS: MIRTAZAPINE 15 MG TABLET PO SCH (21:07)
--- NOTE | 2017-04-27 23:07 | NUR ---
MS RN INITIAL NOTE RECEIVED PT RESTING IN BED. A/O X 2 AND ABLE TO MAKE SOME NEEDS KNOWN. ON ROOM AIR AND SATURATING WELL. IV R WRIST AND DIANNA MIDLINE CLEAN, PATENT AND FLUSHING WELL. ISOLATION PRECAUTIONS OBSERVED. CALL LIGHT WITHIN REACH. BED IN LOWEST POSITION AND LOCKED WITH BED ALARM ON. WILL CONTINUE TO MONITOR
[2017-04-28 04:00] VITALS: BP 127/55
--- NOTE | 2017-04-28 06:54 | NUR ---
MS RN CLOSING NOTE REMAINED STABLE DURING SHIFT. BED ALARM ON. ISOLATION PRECAUTIONS OBSERVED. ALL NEEDS ATTENDED TO PROMPTLY. ALL SAFETY MEASURES IN PLACE. ASSISTED TO THE RESTROOM THROUGHOUT THE NIGHT.ALL DUE MEDS GIVEN ORDERED AND WELL TOLERATED.ENCOURAGED TO DRINK MORE FLUIDS. CALL LIGHT WITHIN EASY REACH. WILL ENDORSE TO NEXT SHIFT FOR ADRIANE.
[2017-04-28 07:00] LABS: CALCIUM, SERUM 9.4 mg/dL (8.5-10.1); CARBON DIOXIDE 26 mmol/L (21-32); CHLORIDE 103 mmol/L (98-107); CREATININE 1.1 mg/dL (0.6-1.3); GLUCOSE 85 mg/dL (74-106); POTASSIUM 3.5 mmol/L (3.5-5.1); SODIUM SERUM 136 mmol/L (136-145); UREA NITROGEN, BLOOD 23 mg/dL (7-18)
[2017-04-28 08:00] VITALS: BP 143/41
[2017-04-28] MEDS: MUPIROCIN OINT 2% 22 GM TUBE SCH ×2 (08:21→21:00)
[2017-04-28] MEDS: PANTOPRAZOLE 40 MG TABLET.DR PO SCH (08:21)
[2017-04-28] MEDS: LamoTRIgine 25 MG TABLET PO SCH (08:21)
[2017-04-28] MEDS: BOOST PLUS FOOD-CHOCLATE 237 ML BOX PO SCH ×2 (08:22→17:26)
[2017-04-28] MEDS: METOPROLOL SUCCINATE 25 MG TAB.SR.24H PO SCH (10:00)
--- NOTE | 2017-04-28 11:00 | NUR ---
MS RN NOTES PATIENT NOTED COUGHING BLOOD, BRIGHT RED. PATIENT IN STABLE CONDITION. NO SOB OR ACUTE DISTRESS NOTED. VS WITHIN NORMAL LIMITS. PAGED DR. BLANCHARD WAITING FOR CALL BACK. WILL CONTINUE TO MONITOR.
[2017-04-28] MEDS: VANCOMYCIN 0.75 GM in IV D5W 250 ML IV SCH (13:10)
--- NOTE | 2017-04-28 13:34 | NUR ---
SEEN AND EXAMINED BY DR. BLANCHARD WITH NEW VERBAL ORDER FOR CXR AND CT PULMOANGIOGRAM WITH CONTRAST- TO OBTAIN CONSENT. MD EXPLAINED PROCEDURE TO PATIENT. PATIENT IS PASSIVE, NODDING HOWEVER NOT VERBALIZING UNDERSTANDING.
[2017-04-28 13:55] LABS: BASOPHILS % (AUTO) 0.6 % (0.0-2.0); EOSINOPHILS % (AUTO) 1.6 % (0.0-6.0); HEMATOCRIT 21 % (33-45); HEMOGLOBIN 7.2 g/dL (11.5-14.8); LYMPHOCYTES # (AUTO) 1.3 /CMM (0.8-4.8); LYMPHOCYTES % (AUTO) 48.3 % (20.0-44.0); MEAN CORPUSCULAR HEMOGLOBIN 32 PG (26.0-33.0); MEAN CORPUSCULAR HGB CONC 34 g/dl (31.0-36.0); MEAN CORPUSCULAR VOLUME 93 fL (82-100); MONOCYTES # (AUTO) 0.2 /CMM (0.1-1.30); MONOCYTES % (AUTO) 7.5 % (2.0-12.0); NEUTROPHILS # (AUTO) 1.1 /CMM (1.8-8.9); PLATELET COUNT (AUTO) 247 /CMM (150-450); RDW COEFFICIENT OF VARIATION 18.5 (11.5-15.0); RED BLOOD CELL COUNT(AUTO) 2.26 MIL/uL (4.0-5.2); WHITE BLOOD COUNT (AUTO) 2.6 K/uL (4.3-11.0)
--- NOTE | 2017-04-28 14:00 | NUR ---
MS RN NOTES PATIENT REFUSES CTA DESPITE EXPLANATION OF BENEFITS. DR. BLANCHARD MADE AWARE, ALSO NOTIFIED DR. BLANCHARD OF LAB RESULTS SPECIALLY OF H/H WAITING FOR ORDERS. PATIENT IN STABLE CONDITION STILL NOTED COUGHING BLOOD. WILL CONTINUE TO MONITOR.
--- NOTE | 2017-04-28 14:14 | NUR ---
PT REFUSING CTA PULMONARY, CELESTINO ROSS WILL CALL DR. BLANCHARD & CALL US BACK.
[2017-04-28 14:24] LABS: BAND % (MANUAL) 4 % (0.0-5.0); EOSINOPHILS % (MANUAL) 2 % (0-4); LYMPHOCYTES % (MANUAL) 41 % (16-48); MONOCYTES % (MANUAL) 8 % (0-11.0); NEUTROPHILS % (MANUAL) 45 (42-76)
--- NOTE | 2017-04-28 15:31 | NUR ---
MS RN NOTES SPOKE TO PATIENTS DAUGHTER DAYANNA INFORMING OF HER MOMS REFUSAL OF CTA SHE STATES ITS HER MOTHERS DECISION, AND WILL FOLLOW HER MOMS WISHES. SHE JUST WISHES HER MOM TO BE COMFORTABLE. DR. BLANCHARD MADE AWARE STATES NO NEW ORDERS CONTINUE TO MONITOR.
[2017-04-28 16:00] VITALS: BP 128/71
--- NOTE | 2017-04-28 18:39 | NUR ---
MS RN NOTES PATIENT IN BED RESTING NO SOB OR ACUTE DISTRESS NOTED. ALL DUE MEDICATIONS ADMINISTERED. ALL NEEDS MET. PATIENT STILL NOTED COUGHING BLOOD, WILL ENDORSE CARE TO PM SHIFT. Addendum: 04/28/17 at 1841 by IRMA PINK RN DR. BLANCHARD AWARE OF ALL LAB RESULTS SPECIALLY H/H ALSO AWARE PATIENT REFUSING TESTS. NO NEW ORDERS.
--- NOTE | 2017-04-28 19:50 | NUR ---
RN INITIAL NOTES: RECEIVED REPORT FROM IRMA TIRADO, PT IN BED, AWAKE, A/O X1-2 ON ROOM AIR RESPIRATION EVEN AND UNLABORED, DENIES ANY PAIN OR DISCOMFORT, PT REFUSED VS AND BEEN NON COMPLIANT PER REPORT AWARE, ALSO PT BEEN COUGHING OUT BLOOD, PT REFUSED CT ANGIOGRAM, CXR OBTAINED, ORDERED DUPLEX VENOUS VIVIANA FOR AM, PT'S DAUGHTER WAS CALLED BY DAY RN TO OBTAINED CONSENT FOR CT ANGIOGRAM BUT PER DAUGHTER SHE DOES NOT WANT TO DECIDE FOR HER MOM HER MOM IS ALERT AND ORIENTED AND SHE STILL MAKE DECISION FOR HERSELF, AND DAUGHTER ADDED SHE'S NOT THE DPOA FOR THE PT, MD MADE AWARE OF THIS. SAFETY PRECAUTIONS FOR FALL INITAITED CALL LIGHT IN REACH, WILL CONTINUE TO MONITOR
[2017-04-28 20:00] VITALS: BP 90/31
--- NOTE | 2017-04-28 20:03 | NUR ---
RN NOTES: NOTED PT BEEN COUGHING OUT BLOOD AND HAD NOSE BLEEDING, MD AWARE, PT REFUSED EVERYTHING FROM VITAL SIGNS UP TO CT ANGIOGRAM MD AWARE, TALKED TRO THE PT AND EXPLAIN IMPORTANCE OF TAKING BP, PT AGREE, NOTED BP TO BE 90/31 HR 102 RR 18 SPO2 96% ON RA, T 98.7, PT REFUSING TO BE PLACED ON [place] POSITION, INFORMED MACHINE FORMER LALITA REGARDING ASSESSMENT AND PT'S BEHAVIOR, MD ALSO AWARE
--- NOTE | 2017-04-28 21:30 | NUR ---
RN NOTES: PT REFUSED BACTROBAN TO BE PUT IN HER NOTES, SHE SAID "NO", PT IS A/O X2 CONFUSED AT TIMES, BEEN NON COMPLIANT LATEX SPOOLER LALITA AND AWARE, EDUCATION PROVIDED TO THE PT
[2017-04-28 21:41] VITALS: BP 118/62
--- NOTE | 2017-04-28 21:43 | NUR ---
RN NOTES: RECHECK PT'S VS AND REVEAL 118/62 HR 96, SPO2 96% ON RA, RR 19, PT REFUSED ORAL CARE AND REFUSED CHANGING THE CUP AT BED SIDE, VANITA GÓMEZ TALKED TO THE PT IN [place] PT IS [place] SPEAKING,
[2017-04-28] MEDS: MIRTAZAPINE 15 MG TABLET PO SCH (22:00)
--- NOTE | 2017-04-28 22:39 | NUR ---
RN NOTES: INFORMED RT REGARDING COLLECTION OF SPUTUM FOR RESPIRATORY CULTURE AND GRAM STAIN
--- NOTE | 2017-04-28 22:43 | NUR ---
REFUSAL FOR MEDICATION: PT REFUSED REMERON, EDUCATION PROVIDED TO THE PT, SHE STATED SHE DOES NOT WANT ANY MEDICATION, ASKED RICO WALDRON TO TRANSLATE FOR THE PT
[2017-04-29 04:00] VITALS: BP 129/62
--- NOTE | 2017-04-29 06:20 | NUR ---
DUMP GRADER: 619-- DUMP GRADER WAS CALLED PT HAS CHANGES IN CONDITION, ALSO BP DROPPING TO LOW 80'S AND SATURATION DROPPING TO 88% EVEN IF PT ON NON REBREATHER MASK 0625-- BLOOD SUGAR WAS TAKEN AND REVEAL 123, VS T 97.4 HR 84 BP 73/49 SPO2 88% ON NON REBREATHER 0626-- DUMP GRADER TEAM ARRIVED, NOHELIA FLORES, LEAD RECREATION ASSISTANT KATIE AND ILDEFONSO BRAXTON, NURSING CHANG GIL OIL DRILLER MD DR REA AND DR ALE CELESTIN HAS BEEN PAGED 3X ALREADY BUT NO RESPONSE RECEIVED 7343-- DECIDED TO MOVE THE PT TO ICU IN ROOM 256 VIA ACLS PROTOCOL 0640-- DR REA CALLED BACK, EXPLAINED THE CONDITION OF THE PT, PER MD TO TRANSFER PT TO ICU WITH ALL MEDS AND HE WILL BE HERE IN THE HOSPITAL SOON, MD ASKING IF RN CALLED CAR FILLER, INFORMED MD THERE'S NO CARDIO ON BOARD BUT INSTEAD CALLED PULMONOLOGY DR AGUILERA, Addendum: 04/29/17 at 0656 by JAKUB BLACKBURN RN DISREGARD ABOVE DOCUMENTATION WRONG ENTRY
[2017-04-29 06:53] LABS: CALCIUM, SERUM 9.6 mg/dL (8.5-10.1); CARBON DIOXIDE 25 mmol/L (21-32); CHLORIDE 104 mmol/L (98-107); CREATININE 1.2 mg/dL (0.6-1.3); GLUCOSE 86 mg/dL (74-106); POTASSIUM 3.6 mmol/L (3.5-5.1); SODIUM SERUM 137 mmol/L (136-145); UREA NITROGEN, BLOOD 33 mg/dL (7-18)
--- NOTE | 2017-04-29 07:10 | NUR ---
RN CLOSING NOTES: PT IN BED, AWAKE, RESPIRATION EVEN AND UNLABORED, C/O PAIN ON HER LEFT ARM OFFERED PAIN MEDICINE BUT PT REFUSED, TRANSLATED BY VANITA GÓMEZ. DIANNA MIDLINE REMAINS PATENT AND FLUSHING WELL, ON HL. NWB ON LUE. PT REMAINS COUGHING OUT BLOOD, EDUCATE REGARDING GETTING SPECIMEN TO BE SEND TO LAB BUT PT REFUSED, AND INSTEAD USED A CUP TO THROW/SPIT OUT HER SPUTUM. BLE KEPT OFFLOADED. VS REMAINS STABLE, NEEDS ATTENDED. PT FOR DOPPLEX VIVIANA OF BILATERAL LOWER EXTREMITIES IN AM, SAFETY PRECAUTIONS REMAINS ENGAGED, CALL LIGHT IN REACH, WILL ENDORSE TO DAY RN FOR ADRIANE.
[2017-04-29] MEDS: PANTOPRAZOLE 40 MG TABLET.DR PO SCH (07:30)
--- NOTE | 2017-04-29 07:30 | NUR ---
RN INITIAL NOTES: PT IN BED, AWAKE, A/O X1-2 ON ROOM AIR RESPIRATION EVEN AND UNLABORED, DENIES ANY PAIN OR DISCOMFORT, PT REFUSED VS AND BEEN NON COMPLIANT PER REPORT MD AWARE,.SAFETY PRECAUTIONS FOR FALL INITAITED CALL LIGHT IN REACH, WILL CONTINUE TO MONITOR.
[2017-04-29 08:00] VITALS: BP 104/69
[2017-04-29] MEDS: BOOST PLUS FOOD-CHOCLATE 237 ML BOX PO SCH ×2 (08:00→17:37)
[2017-04-29] MEDS: MUPIROCIN OINT 2% 22 GM TUBE SCH ×2 (09:00→21:07)
[2017-04-29] MEDS: METOPROLOL SUCCINATE 25 MG TAB.SR.24H PO SCH (09:22)
[2017-04-29] MEDS: LamoTRIgine 25 MG TABLET PO SCH (09:22)
[2017-04-29] MEDS: VANCOMYCIN 0.75 GM in IV D5W 250 ML IV SCH (13:33)
[2017-04-29 16:00] VITALS: BP 116/51
[2017-04-29 20:01] VITALS: BP 126/45
--- NOTE | 2017-04-29 20:02 | NUR ---
RN INITIAL NOTES: RECEIVED PT IN BED, AWAKE, A/O X1-2 ON ROOM AIR RESPIRATION EVEN AND UNLABORED, DENIES ANY PAIN OR DISCOMFORT, PT OKAY WITH VS AND BEEN NON COMPLIANT PER REPORT MD AWARE,.SAFETY PRECAUTIONS FOR FALL INITIATED CALL LIGHT IN REACH, WILL CONTINUE TO MONITOR.
[2017-04-29 20:09] VITALS: BP 126/45
[2017-04-29] MEDS: MIRTAZAPINE 15 MG TABLET PO SCH (21:07)
[2017-04-30] VITALS (9 sets, daily range): BP systolic 114–152; BP diastolic 36–62
--- NOTE | 2017-04-30 06:16 | NUR ---
RN CLOSING NOTES: ENDORSED PT IN BED, AWAKE, A/O X1-2 ON ROOM AIR RESPIRATION EVEN AND UNLABORED, DENIES ANY PAIN OR DISCOMFORT, PT OKAY WITH VS AND BEEN COMPLAINT THROUGH SHIFT,.SAFETY PRECAUTIONS FOR FALL INITIATED CALL LIGHT IN REACH, WILL CONTINUE TO MONITOR.
[2017-04-30 06:54] LABS: CALCIUM, SERUM 9.6 mg/dL (8.5-10.1); CARBON DIOXIDE 26 mmol/L (21-32); CHLORIDE 104 mmol/L (98-107); CREATININE 1.1 mg/dL (0.6-1.3); GLUCOSE 89 mg/dL (74-106); POTASSIUM 3.8 mmol/L (3.5-5.1); SODIUM SERUM 136 mmol/L (136-145); UREA NITROGEN, BLOOD 32 mg/dL (7-18)
--- NOTE | 2017-04-30 07:19 | NUR ---
LAB CALLED TO REPORT CRITICAL LAB VALUE OF H&H 6. Addendum: 04/30/17 at 0934 by PRATIK MIRZA RN TIME LAB CALLED [phone] (not [phone])
--- NOTE | 2017-04-30 07:20 | NUR ---
RN OPEN NOTES RECEIVED REPORT FROM SAUSAGE COOKER NURSE. WILL CONTINUE TO MONITOR AND ASSESS PATIENT THROUGH OUT MY SHIFT.
[2017-04-30] MEDS: MUPIROCIN OINT 2% 22 GM TUBE SCH (08:21)
[2017-04-30] MEDS: BOOST PLUS FOOD-CHOCLATE 237 ML BOX PO SCH ×2 (08:22→15:58)
[2017-04-30] MEDS: LamoTRIgine 25 MG TABLET PO SCH (08:22)
[2017-04-30] MEDS: METOPROLOL SUCCINATE 25 MG TAB.SR.24H PO SCH (08:22)
[2017-04-30] MEDS: PANTOPRAZOLE 40 MG TABLET.DR PO SCH (08:22)
[2017-04-30 09:04] LABS: BASOPHILS % (AUTO) 0.3 % (0.0-2.0); EOSINOPHILS # (AUTO) 0.1 /CMM (0.0-0.7); EOSINOPHILS % (AUTO) 2.1 % (0.0-6.0); LYMPHOCYTES # (AUTO) 1.1 /CMM (0.8-4.8); LYMPHOCYTES % (AUTO) 39.9 % (20.0-44.0); MEAN CORPUSCULAR HEMOGLOBIN 32 PG (26.0-33.0); MEAN CORPUSCULAR HGB CONC 34 g/dl (31.0-36.0); MEAN CORPUSCULAR VOLUME 93 fL (82-100); MONOCYTES # (AUTO) 0.2 /CMM (0.1-1.30); MONOCYTES % (AUTO) 5.8 % (2.0-12.0); NEUTROPHILS # (AUTO) 1.5 /CMM (1.8-8.9); NEUTROPHILS % (AUTO) 51.9 % (43.0-81.0); PLATELET COUNT (AUTO) 230 /CMM (150-450); RDW COEFFICIENT OF VARIATION 18.3 (11.5-15.0); WHITE BLOOD COUNT (AUTO) 2.8 K/uL (4.3-11.0)
[2017-04-30 09:17] LABS: RED BLOOD CELL COUNT(AUTO) 1.92 MIL/uL (4.0-5.2)
[2017-04-30 09:19] LABS: HEMATOCRIT 18 % (33-45); HEMOGLOBIN 6.1 g/dL (11.5-14.8)
--- NOTE | 2017-04-30 09:19 | NUR ---
LAB CALLED WITH CRITICAL VALUE OF H&H 6.10/07
--- NOTE | 2017-04-30 09:35 | NUR ---
DR BLANCHARD NOTIFIED. NEW ORDER RECEIVED AT 09. DR BLANCHARD REPLIED AT 09:34; PER DR BLANCHARD, TRANSFUSE ONE UNIT
--- NOTE | 2017-04-30 09:52 | NUR ---
PATIENT BLOOD TRANSFUSION CONSENT SIGNED. ONE PRBC ORDERED. WAITING FOR BLOOD TO BE READY
[2017-04-30 10:06] LABS: EOSINOPHILS % (MANUAL) 2 % (0-4); LYMPHOCYTES % (MANUAL) 36 % (16-48); MONOCYTES % (MANUAL) 2 % (0-11.0); NEUTROPHILS % (MANUAL) 60 (42-76)
--- NOTE | 2017-04-30 15:00 | NUR ---
BLOOD TRANSFUSION STARTED AT 1440. VITAL SIGNS ARE STABLE. NO SIGNS AND SYMPTOMS OF DISTRESS. WILL CONTINUE TO MONITOR AND ASSESS PATIENT.
--- NOTE | 2017-04-30 18:32 | NUR ---
RN CLOSING NOTES PATIENT IS IN BED AWAKE ALERT AND ORIENTED TO NAME, PLACE AND TIME WITH PERIOD OF CONFUSION AND FORGETFULNESS. KEPT REORIENTING PATIENT TO PLACE AND TIME. PATIENT IS AMBULATORY WITH WALKER AND ASSIST; BED ALARM IS ON FOR FALL PREVENTION. NO SIGNS AND SYMPTOMS OF DISTRESS. DENIED PAIN. IV SITE IS INTACT AND PATENT; NO SIGNS AND SYMPTOMS OF REDNESS OR INFLAMMATION. ONE UNIT OF PRBC ADMINISTERED TODAY. POOR APPETITE, CONSUME LESS THAN 25% DURING MEALS. BED IN LOW POSITION, LOCKED AND TWO SIDE RAILS ARE UP. PATIENT KEPT CLEAN AND DRY AND ALL NURSING CARE ANTICIPATED. PATIENT REMAINED SAFE WITH NO CHANGE OF CONDITION. WILL ENDORSE TO RECORD PRESS TENDER NURSE.
--- NOTE | 2017-04-30 19:56 | NUR ---
RN INITIAL NOTES RECEIVED PATIENT IS IN BED AWAKE ALERT AND ORIENTED TO NAME, PLACE AND TIME WITH PERIOD OF CONFUSION AND FORGETFULNESS. KEPT REORIENTING PATIENT TO PLACE AND TIME. PATIENT IS AMBULATORY WITH WALKER AND ASSIST; BED ALARM IS ON FOR FALL PREVENTION. NO SIGNS AND SYMPTOMS OF DISTRESS. DENIED PAIN. IV SITE IS INTACT AND PATENT; NO SIGNS AND SYMPTOMS OF REDNESS OR INFLAMMATION. ONE UNIT OF PRBC ADMINISTERED TODAY. POOR APPETITE, CONSUME LESS, THAN 25% DURING MEALS, US DONE 1930 PM, NO DVTS NOTED. BED IN LOW POSITION, LOCKED AND TWO SIDE RAILS ARE UP. PATIENT KEPT CLEAN AND DRY AND ALL NURSING CARE ANTICIPATED. PATIENT REMAINED SAFE WITH NO CHANGE OF CONDITION. WILL ENDORSE TO MARKETING CONTENT MANAGER NURSE.
[2017-04-30] MEDS: MIRTAZAPINE 15 MG TABLET PO SCH (21:22)
[2017-04-30] MEDS ORDERED: VANCOMYCIN 500 MG in IV D5W 100 ML IV SCH (23:00)
--- NOTE | 2017-05-01 06:58 | NUR ---
RN CLOSING NOTES ENDORSED PATIENT IS IN BED AWAKE ALERT AND ORIENTED TO NAME, PLACE AND TIME WITH PERIOD OF CONFUSION AND FORGETFULNESS. KEPT REORIENTING PATIENT TO PLACE AND TIME. PATIENT IS AMBULATORY WITH WALKER AND ASSIST; BED ALARM IS ON FOR FALL PREVENTION. NO SIGNS AND SYMPTOMS OF DISTRESS. DENIED PAIN. IV SITE IS INTACT AND PATENT; NO SIGNS AND SYMPTOMS OF REDNESS OR INFLAMMATION. ONE UNIT OF PRBC ADMINISTERED TODAY. POOR APPETITE, CONSUME LESS, THAN 25% DURING MEALS, US DONE 1930 PM, NO DVTS NOTED. BED IN LOW, NOTED PT SCRATCH HER NOSE AND MOUTH TO INFLICT SELF HARM, CAUSING BLEEDING, TALKED TO PT, AND EXPLAINED RISK OF BLEEDING, PT "STATED THAT SHE WILL NOT DO IT AGAIN"
[2017-05-01 07:41] LABS: BASOPHILS % (AUTO) 0.6 % (0.0-2.0); EOSINOPHILS % (AUTO) 1.8 % (0.0-6.0); HEMATOCRIT 21 % (33-45); HEMOGLOBIN 7.2 g/dL (11.5-14.8); LYMPHOCYTES # (AUTO) 0.8 /CMM (0.8-4.8); LYMPHOCYTES % (AUTO) 35.8 % (20.0-44.0); MEAN CORPUSCULAR HEMOGLOBIN 31 PG (26.0-33.0); MEAN CORPUSCULAR HGB CONC 34 g/dl (31.0-36.0); MEAN CORPUSCULAR VOLUME 92 fL (82-100); MONOCYTES # (AUTO) 0.1 /CMM (0.1-1.30); MONOCYTES % (AUTO) 6.8 % (2.0-12.0); NEUTROPHILS # (AUTO) 1.2 /CMM (1.8-8.9); PLATELET COUNT (AUTO) 209 /CMM (150-450); RDW COEFFICIENT OF VARIATION 17.6 (11.5-15.0); RED BLOOD CELL COUNT(AUTO) 2.31 MIL/uL (4.0-5.2); WHITE BLOOD COUNT (AUTO) 2.2 K/uL (4.3-11.0)
[2017-05-01 07:46] LABS: CALCIUM, SERUM 9.6 mg/dL (8.5-10.1); CARBON DIOXIDE 25 mmol/L (21-32); CHLORIDE 103 mmol/L (98-107); GLUCOSE 87 mg/dL (74-106); POTASSIUM 4.1 mmol/L (3.5-5.1); SODIUM SERUM 135 mmol/L (136-145); UREA NITROGEN, BLOOD 27 mg/dL (7-18)
[2017-05-01 08:00] VITALS: BP 99/51
[2017-05-01] MEDS: BOOST PLUS FOOD-CHOCLATE 237 ML BOX PO SCH (08:00)
--- NOTE | 2017-05-01 08:00 | NUR ---
resting in bed... isolations precautions remain. safety measures continue. bed alarm remain on. side rails up x 3 . call light available and within reach
[2017-05-01] MEDS: LamoTRIgine 25 MG TABLET PO SCH (09:11)
[2017-05-01] MEDS: METOPROLOL SUCCINATE 25 MG TAB.SR.24H PO SCH (09:12)
[2017-05-01] MEDS: PANTOPRAZOLE 40 MG TABLET.DR PO SCH (09:13)
[2017-05-01 09:24] LABS: BAND % (MANUAL) 2 % (0.0-5.0); EOSINOPHILS % (MANUAL) 2 % (0-4); LYMPHOCYTES % (MANUAL) 33 % (16-48); MONOCYTES % (MANUAL) 6 % (0-11.0); NEUTROPHILS % (MANUAL) 57 (42-76)
--- NOTE | 2017-05-01 09:30 | NUR ---
DR. BLANCHARD UPDATED WITH PT. HGB POST I UNIT PRBC GIVEN,ALSO RELAYED JUANJOSE,VSS,OK TO D/C TO [facility],FACILITATED TO WILLIAM SAWYER.
[2017-05-01 09:38] VITALS: BP 99/51
[2017-05-01 12:00] VITALS: BP 121/46
== END 2017-05-01 13:40 | DRG 871 ==
LOC: ER 00:19 → TELE1 02:37 → MEDSG1 04-17 10:08
PROVIDERS: ADMIT Internal Medicine; ATTEND Internal Medicine
PROC: 30233N1 Transfusion of Nonautologous Red Blood Cells into Peripheral Vein, Percutaneous Approach (ICD-10-PCS; principal; 2017-04-16)
PROC: 05H533Z Insertion of Infusion Device into Right Subclavian Vein, Percutaneous Approach (ICD-10-PCS; 2017-04-16)
PROC: B546ZZA Ultrasonography of Right Subclavian Vein, Guidance (ICD-10-PCS; 2017-04-16)
DX: A41.02 Sepsis due to Methicillin resistant Staphylococcus aureus (principal); E43 Unspecified severe protein-calorie malnutrition; R53.2 Functional quadriplegia; C90.00 Multiple myeloma not having achieved remission; N17.9 Acute kidney failure, unspecified; D61.818 Other pancytopenia; E87.2 Acidosis; N39.0 Urinary tract infection, site not specified; E46 Unspecified protein-calorie malnutrition; C79.51 Secondary malignant neoplasm of bone; S42.202A Unspecified fracture of upper end of left humerus, initial encounter for closed fracture; E11.9 Type 2 diabetes mellitus without complications; E83.42 Hypomagnesemia; E83.52 Hypercalcemia; F32.9 Major depressive disorder, single episode, unspecified; G31.84 Mild cognitive impairment of uncertain or unknown etiology; G89.29 Other chronic pain; I10 Essential (primary) hypertension; I48.91 Unspecified atrial fibrillation; I70.0 Atherosclerosis of aorta; K21.9 Gastro-esophageal reflux disease without esophagitis; K58.9 Irritable bowel syndrome, unspecified; Z66 Do not resuscitate; Z51.5 Encounter for palliative care; Z22.322 Carrier or suspected carrier of Methicillin resistant Staphylococcus aureus; W19.XXXA Unspecified fall, initial encounter; Y92.129 Unspecified place in nursing home as the place of occurrence of the external cause; S01.112A Laceration without foreign body of left eyelid and periocular area, initial encounter; B96.20 Unspecified Escherichia coli [E. coli] as the cause of diseases classified elsewhere; D50.0 Iron deficiency anemia secondary to blood loss (chronic); R04.0 Epistaxis; Z86.711 Personal history of pulmonary embolism; Z87.440 Personal history of urinary (tract) infections; D63.0 Anemia in neoplastic disease; D69.6 Thrombocytopenia, unspecified
CPT/HCPCS: 36415; 36569; 70450-TC; 71010-TC; 72125-TC; 73030-TC; 73060-TC; 80048-TC; 80053-TC; 80076-TC; 80202-TC; 81000-TC; 83605-TC; 83735-TC; 83880; 84100-TC; 84443-TC; 84484-TC; 85025-TC; 85730-TC; 86850-TC; 86921-TC; 87040-TC; 87081-TC; 87086-TC; 87186-TC; 93307-TC; 93970-TC; A4606; A6402; J0696; J1940; J2543; J3370; J3475; J3480; J3490; J7030; J7040; J7050; J7060; P9016-BL; Z7610